=== PATIENT | male | born 1960 | race Caucasian/White ===

== ENCOUNTER 2016-04-27 14:45 | Inpatient (IN) ==
[2016-04-27] MEDS ORDERED: NS 1,000 ML IV ONE ×2 (16:39→21:34)
[2016-04-27 16:50] LABS: URINE MICRO REVIEW NEEDED? NO; URINE SOURCE CLEAN CATCH
[2016-04-27 16:55] LABS: BILIRUBIN URINE NEGATIVE (NEGATIVE); BLOOD URINE NEGATIVE (NEGATIVE); COLOR STRAW; GLUCOSE URINE >1000 mg/dL (NEGATIVE); LEUKOCYTES URINE NEGATIVE (NEGATIVE); NITRITE URINE NEGATIVE (NEGATIVE); PROTEIN URINE NEGATIVE (NEGATIVE); SP GRAVITY URINE 1.032; TURBIDITY URINE CLEAR (CLEAR); UROBILINOGEN URINE NORMAL (NORMAL)
--- NOTE | 2016-04-27 17:04 | PROVIDER DOCUMENTATION ---
HPI-General Adult - General Source: patient - History of Present Illness -Gen Adult Nature of Presenting Problems: Reports to er with cc of hyperglycemia with nausea and vomiting x 3 days with shortness of breath that has been increasing past 3 days nothing making it better or worse.Pt also reports hypotension past few days reports BP will drop from sitting to standing and has fell twice today. Pt reports previous hx of this and is taking medications for it. Pt reports that he is taking Insulin on a sliding scale. Location of Pain/Injury: reports: generalized Quality of Pain: reports: none Severity: reports: moderate Onset/Duration: reports: 3 days ago Timing: reports: still present Similar Symptoms Previously?: Yes Recently seen or treated by another doctor?: No <Markus Cabrera - Last Filed: 04/27/16 17:53> <Anya Chahal - Last Filed: 04/27/16 21:43> - General Chief Complaint: High Blood Sugar Stated Complaint: HIGH BLOOD SUGAR Time Seen by Provider: 04/27/16 16:39 Allergies/Adverse Reactions: Patient Allergies Allergy/AdvReac Type Severity Reaction Status Date / Time No Known Allergies Allergy Verified 04/27/16 15:34 Home Medications: Insulin Novolog 70/30 [Novolog Mix 70/30] unit SUBQ BID 04/27/16 Review of Systems - Adult - REVIEW OF SYSTEMS - ADULT Constitutional: denies: chills, fever, fatique Eyes: reports: no symptoms reported Ears, Nose, Mouth & Throat: reports: no symptoms reported Cardiovascular: denies: chest pain, irregular heart rate, orthopnea, syncope Respiratory: reports: shortness of breath. denies: cough, pleurisy, wheezing Gastrointestinal: reports: nausea, vomiting. denies: abdominal pain, hematemesis, diarrhea, difficulty swallowing, frequent heartburn Genitourinary: reports: no symptoms reported Musculoskeletal: reports: no symptoms reported Integumentary: reports: no symptoms reported Neurological: reports: no symptoms reported Psychiatric: reports: no symptoms reported Endocrine: reports: no symptoms reported Hematologic/Lymphatic: reports: no symptoms reported Allergic/Immunologic: reports: no symptoms reported All Other Systems: Reviewed and Negative <Markus Cabrera - Last Filed: 04/27/16 17:53> Past History - Adult - PAST MEDICAL HISTORY-ADULT Review of Records: reports: Nursing Assessment Review, Medications Reviewed Major Childhood Illnesses: reports: denies history Cardiovascular: reports: other (hypotension) Neurological: reports: Seizures/Epilepsy Psychiatric: reports: depression Endocrine/Immune: reports: Diabetes - PRIOR SURGERIES/PROCEDURES Surgical/Procedure History: reports: hernia repair, other (neuropathy; dysautonomia) - IMMUNIZATION STATUS Childhood Immunizations: See Nurse Assessment Flu Vaccine: See Nurse Assessment - FAMILY HISTORY Family History: diabetes <Markus Cabrera - Last Filed: 04/27/16 17:53> Physical Exam-General - PHYSICAL EXAM-ADULT Initial Vital Signs Reviewed: Yes - CONSTITUTIONAL General Appearance: appears well, alert, no apparent distress - EYES Eyes: PERRL/EOMI, pink conjunctivae - HEAD, EARS, NOSE, MOUTH & THROAT HENMT: normocephalic/atraumatic, moist mucous membranes, normal ENT inspection - NECK Neck: non-tender, full range of motion, supple, normal inspection - RESPIRATORY Respiratory: chest non-tender, lungs clear, normal breath sounds, no pleuratic chest pain, no accessory muscle use, respiratory distress - CARDIOVASCULAR Cardiovascular: normal peripheral pulses, regular rate, rhythm, no edema, no gallop, no JVD, no murmur - GASTROINTESTINAL (ABDOMEN) Abdominal Exam: normal bowel sounds, non tender, soft - LYMPHATIC Lymphatic: no adenopathy - MUSCULOSKELETAL Back Exam: normal inspection, no CVA tenderness, no vertebral tenderness Extremity: normal range of motion, non-tender, normal gait - SKIN Integumentary: normal color, normal turgor, warm/dry - NEUROLOGIC Neurologic: grossly normal, no motor/sensory deficits - PSYCHIATRIC Psych/Mental Status: normal mood/affect, normal thought content, normal thought process, oriented x 3 <CabreraMarkus - Last Filed: 04/27/16 17:53> Progress - PLAN OF CARE/RESULTS Progress/Plan/Lab Results: Orders Category Date Time Status ABG [RESP] Routine Lab 04/27/16 16:39 Ordered ACETONE SERUM [CHEM] Stat Lab 04/27/16 16:42 Received CBC WITH ELECTRONIC DIFF [HEME] Stat Lab 04/27/16 16:42 Results COMPREHENSIVE METABOLIC PANEL [CHEM] Stat Lab 04/27/16 16:42 Received UA Reflex [URINALYSIS W/POSS RFLX CULT] [URINALYSIS] Lab 04/27/16 16:37 Results Stat 0.9% Sodium Chloride Inj [Ns] 1,000 ml Med 04/27/16 16:39 Active IV 999 mls/hr Vital Signs - 24 hr 04/27/16 15:24 Temperature 98.1 F Pulse Rate 79 Respiratory 16 Rate Blood Pressure 150/93 O2 Sat by Pulse 89 L Oximetry Laboratory Tests 04/27/16 04/27/16 04/27/16 15:30 16:37 16:42 WBC 4.25 L RBC 4.75 Hgb 15.2 Hct 39.9 L MCV 84.0 MCH 32.0 H MCHC 38.1 H RDW Std Deviation 12.6 Plt Count 93 L MPV 9.7 Immature Gran % (Auto) 0.0 Neut % (Auto) 50.0 Lymph % (Auto) 44.7 [place]edar % (Auto) 4.9 Eos % (Auto) 0.2 Baso % (Auto) 0.2 Immature Gran # (Auto) 0.00 Neut # (Auto) 2.12 Lymph # (Auto) 1.90 [place] # (Auto) 0.21 Eos # (Auto) 0.01 Baso # (Auto) 0.01 Specimen Type Sample Site pH pCO2 pO2 HCO3 Base Excess Oxyhemoglobin ABG O2 Sat (Calculated) ABG O2 Saturation ABG Carboxyhemoglobin ABG Methemoglobin Alec Test A-a O2 Difference Total Hemoglobin Lactate Liter Flow Blood Gas Modality FiO2 % Sodium Potassium Chloride Carbon Dioxide Anion Gap BUN Creatinine Estimated GFR/1.73 m2 BUN/Creatinine Ratio Glucose POC Glucose 462 H Calculated Osmolality Calcium Total Bilirubin AST ALT Alkaline Phosphatase Total Protein Albumin Globulin Albumin/Globulin Ratio Urine Source CLEAN CATCH Urine Color STRAW Urine Turbidity CLEAR Urine pH 7.0 Ur Specific [place] 1.032 Urine Protein NEGATIVE Ur Glucose (Stick) >1000 A Ur Ketones (Stick) NEGATIVE Urine Blood NEGATIVE Urine Nitrite NEGATIVE Urine Bilirubin NEGATIVE Urobilinogen Dipstick NORMAL Urine Leukocytes NEGATIVE Urine WBC (Auto) <10 Urine RBC (Auto) <10 U Epithel Cells (Auto) <10 Urine Bacteria (Auto) NEGATIVE Acetone Level 04/27/16 04/27/16 16:42 17:00 WBC RBC Hgb Hct MCV MCH MCHC RDW Std Deviation Plt Count MPV Immature Gran % (Auto) Neut % (Auto) Lymph % (Auto) [place] % (Auto) Eos % (Auto) Baso % (Auto) Immature Gran # (Auto) Neut # (Auto) Lymph # (Auto) [place] # (Auto) Eos # (Auto) Baso # (Auto) Specimen Type ARTERIAL Sample Site R RADIAL pH 7.42 pCO2 45 pO2 101 H HCO3 28.0 H Base Excess 4.0 H Oxyhemoglobin 95.7 ABG O2 Sat (Calculated) 19.5 ABG O2 Saturation 100.2 H ABG Carboxyhemoglobin 3.10 H ABG Methemoglobin 1.4 Aelc Test YES A-a O2 Difference -8.0 Total Hemoglobin 14.4 Lactate 7.20 H* Liter Flow 2.0 Blood Gas Modality CANNULA FiO2 % 21.0 Sodium 136 Potassium 3.6 Chloride 89 L Carbon Dioxide 26 Anion Gap 21 BUN 4 L Creatinine 0.7 Estimated GFR/1.73 m2 > 60 BUN/Creatinine Ratio 6 Glucose 490 H* POC Glucose Calculated Osmolality 291 Calcium 8.1 L Total Bilirubin 1.18 H AST 20 ALT 21 Alkaline Phosphatase 91 Total Protein 6.4 Albumin 3.9 Globulin 2.5 Albumin/Globulin Ratio 1.6 Urine Source Urine Color Urine Turbidity Urine pH Ur Specific [place] Urine Protein Ur Glucose (Stick) Ur Ketones (Stick) Urine Blood Urine Nitrite Urine Bilirubin Urobilinogen Dipstick Urine Leukocytes Urine WBC (Auto) Urine RBC (Auto) U Epithel Cells (Auto) Urine Bacteria (Auto) Acetone Level NEGATIVE - CHANGE OF SHIFT REPORT (ED Provider) Report Given and Care Transferred to:: Time of Transfer: 18:00 <Markus Cabrera - Last Filed: 04/27/16 17:53> - PLAN OF CARE/RESULTS Progress/Plan/Lab Results: plan of care: imaging, labs, medications, fluids Orders Category Date Time Status Finger Stick Blood Sugar (ED) DIRECTED Care 04/27/16 18:52 Active CHEST-2 VIEWS [RAD] Stat Exams 04/27/16 17:[address] ABD/PELVIS W/ IV CONT ONLY [CT] Stat Exams 04/27/16 19:06 Taken ABG [RESP] Routine Lab 04/27/16 17:00 Completed ACETONE SERUM [CHEM] Stat Lab 04/27/16 16:42 Completed CBC WITH ELECTRONIC DIFF [HEME] Stat Lab 04/27/16 16:42 Completed COMPREHENSIVE METABOLIC PANEL [CHEM] Stat Lab 04/27/16 16:42 Completed D-DIMER [CHEM] Stat Lab 04/27/16 16:42 Completed LACTATE, PLASMA [CHEM] Stat Lab 04/27/16 20:55 Received LIPASE [CHEM] Stat Lab 04/27/16 16:42 Completed TROPONIN T Stat Lab 04/27/16 16:42 Completed UA Reflex [URINALYSIS W/POSS RFLX CULT] [URINALYSIS] Lab 04/27/16 16:37 Completed Stat 0.9% Sodium Chloride Inj [Ns] 1,000 ml Med 04/27/16 16:39 Discontinued IV 999 mls/hr Albuterol 2.5MG/Ipratrop 0.5MG [Duoneb (A & A)] Med 04/27/16 17:38 Discontinued 3 ml INH NOW ONE Hydromorphone [Dilaudid] Med 04/27/16 21:07 Discontinued 1 mg IV NOW ONE Insulin Human Regular [Humulin R] Med 04/27/16 17:30 Discontinued 15 unit IV NOW ONE Lorazepam [Ativan] Med 04/27/16 19:19 Discontinued 1 mg IV NOW ONE Morphine Med 04/27/16 19:07 Discontinued 4 mg IV NOW ONE Ondansetron [Zofran] Med 04/27/16 19:06 Discontinued 4 mg IV NOW ONE Aerosol Treatments Routine Oth 04/27/16 17:38 Completed Aerosol Treatments Stat Oth 04/27/16 17:38 Completed Laboratory Tests 04/27/16 04/27/16 04/27/16 15:30 16:37 16:42 WBC 4.25 L RBC 4.75 Hgb 15.2 Hct 39.9 L MCV 84.0 MCH 32.0 H MCHC 38.1 H RDW Std Deviation 12.6 Plt Count 93 L MPV 9.7 Immature Gran % (Auto) 0.0 Neut % (Auto) 50.0 Lymph % (Auto) 44.7 [place] % (Auto) 4.9 Eos % (Auto) 0.2 Baso % (Auto) 0.2 Immature Gran # (Auto) 0.00 Neut # (Auto) 2.12 Lymph # (Auto) 1.90 [place] # (Auto) 0.21 Eos # (Auto) 0.01 Baso # (Auto) 0.01 Segmented Neutrophils Cancelled Band Neutrophils Cancelled Lymphocytes Cancelled Monocytes Cancelled Eosinophils Cancelled Basophils Cancelled Metamyelocytes Cancelled Myelocytes Cancelled Promyelocytes Cancelled Nucleated RBCs Cancelled Atypical Lymphocytes Cancelled Blast Cells Cancelled Hypochromia Cancelled Vacuolization Cancelled Toxic Granulation Cancelled Dohle Bodies Cancelled Large Platelets Cancelled Polychromasia Cancelled Poikilocytosis Cancelled Basophilic Stippling Cancelled Anisocytosis Cancelled Microcytosis Cancelled Macrocytosis Cancelled Spherocytes Cancelled Sickle Cells Cancelled Target Cells Cancelled Ovalocytes Cancelled Stomatocytes Cancelled [place] Bodies Cancelled Oto Cells Cancelled Unidentified Cells Cancelled Schistocytes Cancelled D-Dimer Specimen Type Sample Site pH pCO2 pO2 HCO3 Base Excess Oxyhemoglobin ABG O2 Sat (Calculated) ABG O2 Saturation ABG Carboxyhemoglobin ABG Methemoglobin Alec Test A-a O2 Difference Total Hemoglobin Lactate Liter Flow Blood Gas Modality FiO2 % Sodium Potassium Chloride Carbon Dioxide Anion Gap BUN Creatinine Estimated GFR/1.73 m2 BUN/Creatinine Ratio Glucose POC Glucose 462 H Calculated Osmolality Calcium Total Bilirubin AST ALT Alkaline Phosphatase Troponin T Total Protein Albumin Globulin Albumin/Globulin Ratio Lipase Urine Source CLEAN CATCH Urine Color STRAW Urine Turbidity CLEAR Urine pH 7.0 Ur Specific [place] 1.032 Urine Protein NEGATIVE Ur Glucose (Stick) >1000 A Ur Ketones (Stick) NEGATIVE Urine Blood NEGATIVE Urine Nitrite NEGATIVE Urine Bilirubin NEGATIVE Urobilinogen Dipstick NORMAL Urine Leukocytes NEGATIVE Urine WBC (Auto) <10 Urine RBC (Auto) <10 U Epithel Cells (Auto) <10 Urine Bacteria (Auto) NEGATIVE Acetone Level 04/27/16 04/27/16 04/27/16 16:42 16:42 16:42 WBC RBC Hgb Hct MCV MCH MCHC RDW Std Deviation Plt Count MPV Immature Gran % (Auto) Neut % (Auto) Lymph % (Auto) [place] % (Auto) Eos % (Auto) Baso % (Auto) Immature Gran # (Auto) Neut # (Auto) Lymph # (Auto) [place] # (Auto) Eos # (Auto) Baso # (Auto) Segmented Neutrophils Band Neutrophils Lymphocytes Monocytes Eosinophils Basophils Metamyelocytes Myelocytes Promyelocytes Nucleated RBCs Atypical Lymphocytes Blast Cells Hypochromia Vacuolization Toxic Granulation Dohle Bodies Large Platelets Polychromasia Poikilocytosis Basophilic Stippling Anisocytosis Microcytosis Macrocytosis Spherocytes Sickle Cells Target Cells Ovalocytes Stomatocytes [place] Bodies Oto Cells Unidentified Cells Schistocytes D-Dimer 0.17 Specimen Type Sample Site pH pCO2 pO2 HCO3 Base Excess Oxyhemoglobin ABG O2 Sat (Calculated) ABG O2 Saturation ABG Carboxyhemoglobin ABG Methemoglobin Alec Test A-a O2 Difference Total Hemoglobin Lactate Liter Flow Blood Gas Modality FiO2 % Sodium 136 Potassium 3.6 Chloride 89 L Carbon Dioxide 26 Anion Gap 21 BUN 4 L Creatinine 0.7 Estimated GFR/1.73 m2 > 60 BUN/Creatinine Ratio 6 Glucose 490 H* POC Glucose Calculated Osmolality 291 Calcium 8.1 L Total Bilirubin 1.18 H AST 20 ALT 21 Alkaline Phosphatase 91 Troponin T < 0.010 Total Protein 6.4 Albumin 3.9 Globulin 2.5 Albumin/Globulin Ratio 1.6 Lipase Urine Source Urine Color Urine Turbidity Urine pH Ur Specific [place] Urine Protein Ur Glucose (Stick) Ur Ketones (Stick) Urine Blood Urine Nitrite Urine Bilirubin Urobilinogen Dipstick Urine Leukocytes Urine WBC (Auto) Urine RBC (Auto) U Epithel Cells (Auto) Urine Bacteria (Auto) Acetone Level NEGATIVE 04/27/16 04/27/16 16:42 17:00 WBC RBC Hgb Hct MCV MCH MCHC RDW Std Deviation Plt Count MPV Immature Gran % (Auto) Neut % (Auto) Lymph % (Auto) [place] % (Auto) Eos % (Auto) Baso % (Auto) Immature Gran # (Auto) Neut # (Auto) Lymph # (Auto) [place] # (Auto) Eos # (Auto) Baso # (Auto) Segmented Neutrophils Band Neutrophils Lymphocytes Monocytes Eosinophils Basophils Metamyelocytes Myelocytes Promyelocytes Nucleated RBCs Atypical Lymphocytes Blast Cells Hypochromia Vacuolization Toxic Granulation Dohle Bodies Large Platelets Polychromasia Poikilocytosis Basophilic Stippling Anisocytosis Microcytosis Macrocytosis Spherocytes Sickle Cells Target Cells Ovalocytes Stomatocytes [place] Bodies Oto Cells Unidentified Cells Schistocytes D-Dimer Specimen Type ARTERIAL Sample Site R RADIAL pH 7.42 pCO2 45 pO2 101 H HCO3 28.0 H Base Excess 4.0 H Oxyhemoglobin 95.7 ABG O2 Sat (Calculated) 19.5 ABG O2 Saturation 100.2 H ABG Carboxyhemoglobin 3.10 H ABG Methemoglobin 1.4 Alec Test YES A-a O2 Difference -8.0 Total Hemoglobin 14.4 Lactate 7.20 H* Liter Flow 2.0 Blood Gas Modality CANNULA FiO2 % 21.0 Sodium Potassium Chloride Carbon Dioxide Anion Gap BUN Creatinine Estimated GFR/1.73 m2 BUN/Creatinine Ratio Glucose POC Glucose Calculated Osmolality Calcium Total Bilirubin AST ALT Alkaline Phosphatase Troponin T Total Protein Albumin Globulin Albumin/Globulin Ratio Lipase 6 L Urine Source Urine Color Urine Turbidity Urine pH Ur Specific [place] Urine Protein Ur Glucose (Stick) Ur Ketones (Stick) Urine Blood Urine Nitrite Urine Bilirubin Urobilinogen Dipstick Urine Leukocytes Urine WBC (Auto) Urine RBC (Auto) U Epithel Cells (Auto) Urine Bacteria (Auto) Acetone Level Vital Signs - 24 hr 04/27/16 04/27/16 04/27/16 15:24 17:45 21:04 Temperature 98.1 F 98.5 F Pulse Rate 79 79 87 Respiratory 16 18 16 Rate Blood Pressure 150/93 157/92 141/78 O2 Sat by Pulse 89 L 97 93 L Oximetry Pt/family given results. Pt will be admitted to the hospitalist group. PT/ Family in agreement with plan of care. - REASSESSMENT Reassessment #1 Time Reassessed: 19:00 (acute ABD, moderate generalized tenderness, postive bilateral heel slap, positive rebound tenderness generalized. CT scan will be ordered. ) - CT/MRI 1 CT Study: Abdomen, Pelvis Impression: Abnormal (Evidence of chronic pancreatitis. Marked GB, common bile duct, and pancreatice duct dilation suggesting distal obstruction. Multiple calcifications at pancreatic head are probably due to chronic pancreatitis. I suppose one of the calcifications may actually be inside or obstructing the bile duct. An occult obstructing mass should also be considered. ERCP recommended. 2 cm nonspecific low dense lesion at the hepatic dome, possible a complex cyst. Fatty liver. Otherwise NAP.: Dr. Acosta) - CONSULTS/PCP/HOSPITALIST Notification #1 *Consult/PCP/Hospitalist*: Dr. Garcia Time Discussed: 20:49 Consult Disposition: Will see in ED, Admit #2 Consult: Dr. Barnhart Time Discussed: 20:53 Consult Disposition: Admit (will consult) #3 Consult: Dr. Barnhart Time Discussed: 21:35 Reason/Comments: advising of repeat plasma lactate Consult Disposition: Will see in ED (will see in 15 minutes, currently in surgery) <Anya Chahal - Last Filed: 04/27/16 21:43> Departure <Markus Cabrera - Last Filed: 04/27/16 17:53> - Departure Time of Disposition Order: 20:51 Certified Medical Emergency: Emergent <Anya Chahal - Last Filed: 04/27/16 21:43> - Departure DIAGNOSIS: Cholecystitis Disposition: ADMITTED INPATIENT 09 Condition: Stable Referrals: Alin Luu MD [Primary Care Provider] - Attestation - Scribe Verification/Attestation Scribe:: Markus Cabrera Acting as Scribe for:: Terri Anders Jr Scribe documention review:: This chart was documented by a scribe and accurately reflects the service the provider performed and the decisions made by the provider. <Markus Cabrera - Last Filed: 04/27/16 17:53> - Scribe Verification/Attestation #2 Shift Change Time: 18:00 Scribe Name: Anya Chahal Acting as Scribe for:: Cipriano Sebastian <Anya Chahal - Last Filed: 04/27/16 21:43> Physician Attestation - Physician Attestation I, the provider, attest to the following statement:: Cipriano Sebastian Physician documentation Attestation:: This documentation recorded by the scribe accurately reflects the service I personally performed and the decisions made by me. <Anya Chahal - Last Filed: 04/27/16 21:43>
[2016-04-27 17:08] LABS: ACETONE SERUM NEGATIVE (NEGATIVE)
[2016-04-27 17:10] LABS: UR EPITHELIAL CELLS <10 /HPF (<10); URINE BACTERIA NEGATIVE /HPF; URINE CULTURE NEEDED? NO; URINE RBC <10 /HPF (<10); URINE WBC <10 /HPF (<10)
[2016-04-27 17:16] LABS: ALLEN TEST YES; BLOOD TYPE ARTERIAL; DRAW SITE R RADIAL; METHB 1.4 % (0.0-1.5); O2(CT) 19.5 mL/dL (15.0-23.0); PCO2(98.6) 45 mmHg (35-45); PO2(98.6) 101 mmHg (60-100); SAMPLE BLOOD; SAO2 100.2 % (95.0-100.0); THB 14.4 g/dL (11.5-17.4); pH(98.6) 7.42 (7.35-7.45)
[2016-04-27 17:18] LABS: MODALITY CANNULA
[2016-04-27 17:30] LABS: AGAP 21; ALBUMIN 3.9 g/dL (3.5-5.0); ALKALINE PHOSPHATASE 91 U/L (32-122); BUN 4 mg/dL (8-22); CALCIUM 8.1 mg/dL (8.8-10.2); CHLORIDE 89 mmol/L (98-107); COSMO 291; GOT 20 U/L (10-34); GPT 21 U/L (10-44); POTASSIUM 3.6 mmol/L (3.5-5.1); SODIUM 136 mmol/L (136-145); TCO2 26 mmol/L (25-35); TOTAL BILIRUBIN 1.18 mg/dL (0.20-1.00); TOTAL PROTEIN 6.4 g/dL (6.3-8.3)
[2016-04-27] MEDS ORDERED: HUMULIN R IV ONE (17:30)
[2016-04-27] MEDS ORDERED: DUONEB (A & A) INH ONE (17:38)
[2016-04-27 17:44] LABS: BASO% 0.2 % (0.0-0.8); EOS# 0.01 X1000 (0.0-0.7); EOS% 0.2 % (0.0-10.0); HEMATOCRIT 39.9 % (42.0-52.0); HEMOGLOBIN 15.2 g/dL (14.0-18.0); LYMPH% 44.7 % (20.5-51.1); MANUAL DIFF NEEDED? YES; MCHC 38.1 g/dL (33-37); MONO# 0.21 X1000 (0.11-0.59); MONO% 4.9 % (1.7-9.3); MPV 9.7 FL (7.4-10.4); PLT 93 X1000 (130-400); RBC 4.75 XMIL (4.7-6.1)
[2016-04-27] MEDS ORDERED: ZOFRAN IV ONE (19:06)
[2016-04-27] MEDS ORDERED: MORPHINE IV ONE (19:07)
[2016-04-27] MEDS ORDERED: ATIVAN IV ONE (19:19)
[2016-04-27] MEDS ORDERED: DILAUDID IV ONE (21:07)
--- NOTE | 2016-04-27 22:47 | HISTORY AND PHYSICAL ---
CHIEF COMPLAINT: Abdominal pain, nausea, vomiting x1 week. HISTORY OF PRESENTING ILLNESS: A 56-year-old male with a history of diabetes mellitus type 2 and history of orthostatic hypotension had presented to emergency department with a 1-week history of having nausea, vomiting and diffuse abdominal pain. The patient states that he was feeling worse and subsequently had come to emergency department. In the ER, he was evaluated. He had a CAT scan done, which did show enlarged gallbladder and bile ducts, symptoms consistent with suspected choledocholithiasis. Subsequently he will need hospitalization for further management. At the time of my examination, he denied any headache, fever, chills, chest pain, shortness of breath, hemoptysis or weight changes but complained of abdominal pain. Not feeling well. PAST MEDICAL HISTORY: Diabetes mellitus type 2 and orthostatic hypotension. PAST SURGICAL HISTORY: None. ALLERGIES: No known drug allergies. CURRENT MEDICATIONS: Listed in the MAR. SOCIAL HISTORY: No history of smoking, alcohol or illicit drug use. FAMILY HISTORY: No history of coronary disease. REVIEW OF SYSTEMS: Twelve point review of systems is as in HPI. Other systems negative. PHYSICAL EXAMINATION: GENERAL: Cooperative, friendly male. He is resting comfortably now. VITAL SIGNS: Temperature 98.1 degrees, pulse 89, respirations 16, blood pressure 150/93, he is saturating 98%. HEENT: Atraumatic, normocephalic. Extraocular movements intact. PERRLA. NECK: No masses. CHEST: Clear to auscultation. CARDIOVASCULAR: Regular rate and rhythm. ABDOMEN: Soft. Diffuse tenderness. EXTREMITIES: No edema. NEUROLOGIC: He is awake, alert, oriented x3. : No bladder distention. SKIN: Warm. LABORATORIES AND STUDIES: WBC 4.25. Hemoglobin 15.2. Hematocrit 39.9. Platelets 93,000. Sodium 136, potassium 3.6, chloride 89, CO2 is 26, BUN is 4, creatinine 0.7, glucose is 490, lactic acid level is 7.4. Total bilirubin is 1.18. Urine shows greater than 1000 glucose. ASSESSMENT: This is a 56-year-old male with a history of diabetes mellitus type 2 and chronic orthostatic hypotension, had presented to the emergency department with 1-week history of having abdominal pain, nausea, vomiting. He had imaging done, which showed a dilated bile duct with suspicion for cholelithiasis. The patient will need hospitalization for further management. 1. Abdominal pain with Nausea and Vomiting 2. Suspected choledocholithiasis. 3. Diabetes mellitus type 2 with hyperglycemia. 4. Orthostatic hypotension. 5. Lactic Acidiosis probably secondary to #4, hypoperfusion/ volume depletion PLAN: 1. We will admit patient to medical floor. 2. We will keep patient nothing per oral, give him adequate pain control and antiemetics. 3. We will consult Gastroenterology and Surgery. 4. We will continue patient on sliding scale insulin regimen. 5. I will give patient adequate fluids. 6. We will monitor his lactate level again due to the fact it was elevated. and continue with IV fluids 7. Put patient on deep venous thrombosis prophylaxis with Sequential Compression Devices. 8. We will continue to follow and reassess. [facility]
[2016-04-27] MEDS ORDERED: KEFZOL 1 GM/D5W 50 ML IV ONE (22:58)
[2016-04-27] MEDS ORDERED: CLAVE SECONDARY SET 11953 ONE (23:44)
[2016-04-27] MEDS ORDERED: KEFZOL 1 GM/D5W 50 ML ONE (23:44)
[2016-04-27] MEDS ORDERED: LR 1,000 ML ONE (23:55)
[2016-04-27] MEDS ORDERED: SENSORCAINE 0.25%/EPI 1:200,000 ONE (23:55)
[2016-04-28] MEDS ORDERED: DIPRIVAN 1% ONE (01:12)
[2016-04-28] MEDS ORDERED: FENTANYL ONE (01:12)
[2016-04-28] MEDS ORDERED: NS 1,000 ML ONE (01:17)
--- NOTE | 2016-04-28 01:19 | CONSULTATION ---
DATE OF CONSULTATION: 04/27/2016 REQUESTING PHYSICIAN: Dr. Elizabeth. SURGEON CONSULTED.: Ke Barnhart. REASON FOR CONSULTATION: Severe abdominal pain, abnormal abdominal exam with elevated serum lactate.. HISTORY OF PRESENT ILLNESS: A 56-year-old male with a 1-week history of intermittent nausea, vomiting, weakness, hypotension and mid to lower abdominal pain. He initially revealed to me that he presented to the emergency room due to the nausea and vomiting, weakness and hypotension. He took his blood pressure today and his blood pressure was systolic in the 70s, diastolic in the 40s. This is a chronic problem for him secondary to an autonomic neuropathy. He is on a medication for it. He also admits to me upon further questioning, that he has had fairly significant mid to lower abdominal pain. He attributed this due to the multiple episodes of vomiting. It also hurts sometimes after eating. He denies diarrhea, constipation, rectal bleeding or fever. PAST MEDICAL HISTORY: 1. Diabetic autonomic neuropathy or dysautonomia with postural hypotension. 2. Insulin-dependent diabetes mellitus. 3. 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 4. Alcohol abuse. 5. History of seizures. PAST SURGICAL HISTORY: Left inguinal hernia repair. FAMILY HISTORY: His mother had lung cancer. His father had Alzheimer's disease and his brother had colon cancer. HOME MEDICATIONS: Florinef, Neurontin, midodrine, NovoLog 70/30. SOCIAL HISTORY: He has a history of alcohol abuse. He says he quit a while back, but drank again this past week. He is disabled. He denies tobacco use. REVIEW OF SYSTEMS: Ten systems reviewed and negative except as noted above. PHYSICAL EXAM: vital signs: Although his blood pressure was reported to be 70/40s at home, on presentation his blood pressure was normal or slightly elevated, currently 127/82, respiratory rate 22, pulse 99, temperature 98.1. General: He is alert oriented x4. No acute distress. He looks his stated age. HEENT: Normocephalic, atraumatic. Extraocular muscles intact. Pupils equal, round, reactive to light. Sclerae anicteric. Neck: Supple. No thyromegaly. Lymphs: No cervical, supraclavicular, or periumbilical lymph nodes appreciated. Cardiovascular: Regular rate and rhythm. Respiratory: Bilateral equal breath sounds. No work of breathing. GI: He is soft, nondistended with some bowel sounds. No mass or organomegaly appreciated. He is moderately tender across his mid abdomen with some peritoneal irritation, especially with a heel tap. Neuro: Alert oriented x4. No focal neurologic deficits in the extremities. Musculoskeletal: Moves all extremities equally and well. Skin: Warm and dry. No rash. LABORATORY: White blood cell count 4, hemoglobin 15, platelet count 93,000. Metabolic profile reviewed and notable for glucose of 490. Lipase is normal at 6. Liver function tests unremarkable. Slightly elevated bilirubin of 1.2. He also had some decreased potassium at 3.6, and chloride at 89. Serum acetone levels negative. Serum lactate level however is 7.4. ABGs shows pH 7.42, PCO2 of 45, PaO2 101, and bicarb 28, and lactate is 7.2. IMAGING: He had a CT of abdomen and pelvis, which showed a dilated common bile duct and gallbladder with stones in the pancreas. Upon my chart review, he has a history of this dating back to 2014. ASSESSMENT AND PLAN: A 56-year-old male with multiple medical problems, presenting with a somewhat confusing picture of abdominal pain, nausea, vomiting, lactic acidosis with an elevated anion gap, a tender abdomen, hyperglycemia, reported hypotension, as well as, a history of an abnormal gallbladder and common bile duct. Given this presentation, I think the differential diagnosis would include hyperglycemia producing the abdominal complaints, global hypoperfusion secondary to either volume loss from nausea and vomiting or dysautonomia and postural hypotension. Also cannot rule out acute intestinal or subacute intestinal ischemia. Given this, I feel it is safest to take him to surgery for diagnostic laparoscopy tonight and rule out an acute intestinal ischemic event. I discussed the risks and benefits with him including bleeding, infection, injury to his abdominal organs, such as the intestines, the possible need for bowel resection, or revascularization, incisional hernia, postoperative pneumonia and other imponderables. He understands and agrees to proceed.
[2016-04-28] MEDS ORDERED: NORCO-5 PO PRN (02:04)
[2016-04-28] MEDS: NS 1,000 ML IV SCH ×3 (02:05→22:28)
[2016-04-28] MEDS: DILAUDID IV PRN ×6 (03:12→22:27)
--- NOTE | 2016-04-28 04:02 | OPERATIVE NOTE ---
PROCEDURE DATE: 04/28/2016 PREOPERATIVE DIAGNOSES: 1. Abdominal pain. 2. Elevated lactate. 3. Hyperglycemia 4. Dysautonomia and hypotension. POSTOPERATIVE DIAGNOSES: 1. Abdominal pain. 2. Elevated lactate. 3. Hyperglycemia 4. Dysautonomia and hypotension. PROCEDURE: Diagnostic laparoscopy. SURGEON: Ke Barnhart MD ANESTHESIA: General. ESTIMATED BLOOD LOSS: 10 mL. COMPLICATIONS: None apparent. SPECIMENS: None. FINDINGS: The small bowel had some mild peritoneal irritation and friability with minor spontaneous bloody oozing along multiple areas; however, there was very good peristalsis, good color of the bowel and pulsatile blood flow at the terminal branches of the mesentery throughout the small bowel. There were no signs of any ischemia of small bowel, colon, rectum or stomach. The spleen and liver were unremarkable. The gallbladder was distended but not acutely inflamed. The appendix was normal. There were no signs of any obstruction. TECHNIQUE: He was brought to the operating room and placed supine on the table. General anesthesia was induced. He was prepped and draped in the usual sterile fashion. Then, 0.25% Marcaine with epinephrine was used to anesthetize our skin incisions. An 11 mm incision was made above the umbilicus. The fascia was exposed and incised sharply. Entry into the peritoneal cavity was obtained under direct vision with the Optiview device. Pneumoperitoneum was established. The camera was inserted. There was no evidence of injury to underlying structures. Two 5 mm incision and ports were placed under direct vision in the right upper quadrant and left lower quadrant. I placed the patient in Trendelenburg and reverse Trendelenburg in alternating fashion. I worked from the ligament of Treitz down to the terminal ileum and back with the above findings. I could find no signs of intra-abdominal catastrophe or ischemic event. There was some hemoperitoneum, which I believe is due to general friability of the visceral peritoneum diffusely. The etiology is unclear. I then desufflated the abdomen and removed the ports and closed the umbilical fascia with a [id number] 0 Vicryl. The skin was closed with running 4-0 subcuticular Monocryl and Steri-Strips. There were no apparent complications.
[2016-04-28] MEDS: ZOFRAN IV PRN ×2 (04:48→08:23)
[2016-04-28 05:44] LABS: BASO% 0.2 % (0.0-0.8); EOS# 0.02 X1000 (0.0-0.7); EOS% 0.4 % (0.0-10.0); HEMATOCRIT 36.5 % (42.0-52.0); HEMOGLOBIN 13.6 g/dL (14.0-18.0); LYMPH# 1.52 X1000 (1.2-3.4); LYMPH% 26.7 % (20.5-51.1); MANUAL DIFF NEEDED? NO; MCH 31.9 PG (27-31); MCHC 37.3 g/dL (33-37); MCV 85.7 FL (81-99); MONO% 5.3 % (1.7-9.3); MPV 9.9 FL (7.4-10.4); NEUT% 67.4 % (42.2-75.2); PLT 76 X1000 (130-400); RBC 4.26 XMIL (4.7-6.1)
[2016-04-28] MEDS: HUMULIN R SUBQ SCH ×4 (06:05→22:29)
[2016-04-28 06:11] LABS: AGAP 18; ALBUMIN 3.8 g/dL (3.5-5.0); ALKALINE PHOSPHATASE 83 U/L (32-122); BUN 4 mg/dL (8-22); CALCIUM 7.4 mg/dL (8.8-10.2); CHLORIDE 96 mmol/L (98-107); COSMO 283; GOT 21 U/L (10-34); GPT 21 U/L (10-44); POTASSIUM 3.5 mmol/L (3.5-5.1); SODIUM 140 mmol/L (136-145); TCO2 26 mmol/L (25-35); TOTAL BILIRUBIN 1.22 mg/dL (0.20-1.00)
--- NOTE | 2016-04-28 07:48 | EKG Report ---
Test Performed on : 04/27/2016 4:43:56 PM Test Reason : Done in ED/No order in [employer] Blood Pressure : / mmHG Vent. Rate : 079 BPM Atrial Rate : 079 BPM P-R Int : 156 ms QRS Dur : 078 ms QT Int : 398 ms P-R-T Axes : 056 058 043 degrees QTc Int : 456 ms Normal sinus rhythm. Normal ECG When compared with ECG of 15-JAN-2015 01:53, Nonspecific T wave abnormality, improved in Inferior leads Unconfirmed Result
--- NOTE | 2016-04-28 07:52 | Diag Imaging Result Document ---
PROCEDURE NAME: CT ABD/PELVIS W/ IV CONT ONLY - 04/27/2016 CT ABDOMEN PELVIS WITH INTRAVENOUS CONTRAST, 04/27/2016: COMPARISON: Right upper quadrant ultrasound 01/15/2015. FINDINGS: Stable severe pancreatic atrophy with abnormal calcifications throughout the pancreas. There is also a calcified stone at the main pancreatic duct in the pancreatic head. The common bile duct remains borderline. Stable significant dilation of the gallbladder, nonspecific. No calcified gallstones. Stable cyst at the superior right lobe of the liver. The spleen adrenals and kidneys are normal. No bowel obstruction or inflammation. Normal appendix. Urinary bladder, prostate, and rectum are normal. There are extremely severe arterial calcifications of the peripheral vasculature of the pelvis and legs. Degenerative changes of the spine. No acute bony lesions. IMPRESSION: 1. Stable severely dilated gallbladder, etiology unclear. This may represent chronic cholecystitis. 2. Stable severe chronic pancreatitis. 3. There is a stone in the main pancreatic duct in the pancreatic head. 4. Severe arterial disease.
[2016-04-28] MEDS ORDERED: NEOSTIGMINE ONE (08:18)
[2016-04-28] MEDS ORDERED: ROBINUL ONE (08:19)
[2016-04-28] MEDS ORDERED: ZOFRAN ONE (08:19)
[2016-04-28] MEDS ORDERED: ZEMURON ONE (08:19)
[2016-04-28] MEDS ORDERED: QUELICIN (DOSE) ONE (08:19)
[2016-04-28] MEDS ORDERED: LR 2,000 ML ONE (08:19)
[2016-04-28] MEDS ORDERED: XYLOCAINE-MPF 2% ONE (08:19)
--- NOTE | 2016-04-28 08:19 | Diag Imaging Result Document ---
PROCEDURE NAME: CHEST-2 VIEWS - 04/27/2016 PA AND LATERAL RADIOGRAPH OF THE CHEST: COMPARISON: 02/10/2015. FINDINGS: There is minimal linear scarring at the right lower lung zone, stable. The lungs are clear otherwise. There is no definite pleural fluid collection. Cardiac silhouette and central vasculature are unremarkable. IMPRESSION: Stable chest with no definite acute pathology.
--- NOTE | 2016-04-28 09:39 | Diag Imaging Result Document ---
PROCEDURE NAME: US ABDOMEN-COMPLETE - 04/28/2016 COMPLETE ABDOMINAL ULTRASOUND: COMPARISON: 10/01/2014. FINDINGS: The gallbladder is distended similar to a recent CT dated 04/27/2016. The common bile duct is dilated measuring 1.2 cm in diameter. This is significantly larger than the previous ultrasound where it measured 8 mm in diameter. There are no discrete gallstones or gallbladder wall thickening. There is no pericholecystic fluid. No discrete stone can be identified in the common bile duct by ultrasound. Much of the pancreas is obscured by bowel gas. Calcifications are identified in the head of the pancreas similar to the previous CT suggesting chronic pancreatitis. There is a 1.9 cm simple cyst at the dome of the liver. It is also seen on the previous CT. No well-defined liver mass or definite pancreatic mass can be identified by ultrasound. Sonographic Gonzales's sign was reported to be negative. The spleen and IVC are grossly unremarkable. The aorta is obscured by bowel gas. There is a 1.8 cm echogenic focus at the upper pole of the left kidney, which may represent a tiny angiomyolipoma. The kidneys are unremarkable, otherwise. IMPRESSION: 1. Distended gallbladder and dilated common bile duct similar to the previous CT. Distal obstruction cannot be excluded. 2. Calcifications involving the head of the pancreas suggesting chronic pancreatitis, but most of the pancreas is obscured. No well-defined pancreatic mass can be identified sonographically. 3. Other incidental/nonacute findings detailed above.
[2016-04-28] MEDS: FLORINEF PO SCH (10:23)
[2016-04-28] MEDS: PROAMATINE PO SCH ×3 (10:23→22:28)
[2016-04-28] MEDS: PERIDEX MT SCH ×2 (10:23→22:28)
[2016-04-28 13:28] LABS: HDL 55 mg/dL (35-55); LDL 22 mg/dL; TRIGLYCERIDES 65 mg/dL (39-160); VLDL 13 mg/dL
[2016-04-28] MEDS: PROTONIX IV SCH (13:28)
[2016-04-28] MEDS ORDERED: ATIVAN IV ONE (13:54)
[2016-04-28] MEDS ORDERED: ATIVAN ONE (13:56)
--- NOTE | 2016-04-28 14:57 | Diag Imaging Result Document ---
PROCEDURE NAME: MRI ABDOMEN W/WO CONTRAST - 04/28/2016 MRI ABDOMEN WITH MRCP: COMPARISON: CT abdomen and pelvis 04/27/2016. FINDINGS: Once again, there is significant fluid dilation of the gallbladder. No evidence of gallstones. No wall thickening or surrounding free fluid. There is mild dilation of the common bile duct but no strictures or filling defects. There is extremely severe pancreatic atrophy. There is epin-es-[id number] dilation of the main pancreatic duct which measures up to about 8 mm. There are at least 3 stones in the main pancreatic duct in the pancreatic head measuring about 7 mm. No free fluid or adenopathy visible. The liver, spleen, adrenals, and kidneys are normal. There is no abnormal contrast enhancement. IMPRESSION: 1. Significant distention of the gallbladder, nonspecific. This is chronic. 2. Chronic pancreatitis. 3. Chronic dilation of the main pancreatic duct with stones in the pancreatic head within the duct.
--- NOTE | 2016-04-28 17:03 | CONSULTATION ---
DATE OF CONSULTATION: 04/28/2016 REFERRING PHYSICIAN: Celestino Luu MD REASON FOR CONSULTATION: Abdominal pain. Distended common bile duct. HISTORY OF PRESENT ILLNESS: Mr. Brooks is a 56-year-old male who was admitted on 04/27/2016 for complaints of hyperglycemia, nausea, vomiting, shortness of breath getting worse , hypertension, presyncope for the last [address] scan on admission which showed evidence of chronic pancreatitis and marked gallbladder and common bile duct and pancreatic duct dilation suggesting distal obstruction. Multiple calcifications of pancreatic head were noted secondary to chronic pancreatitis fatty liver and 2 cm nonspecific low-density lesion noted at hepatic dome, possible complex cyst was noted. The patient was noted to have elevated lactate of 7.2 and he underwent laparoscopy last night by Dr. Barnhart which showed hemoperitoneum. Gastroenterology was consulted for management of chronic pancreatitis. PAST MEDICAL HISTORY: Alcoholism for 34 years off and on, but quit about 1 years ago. Diabetes. Fracture of the nasal bones. Osteoarthritis. Diabetic neuropathy. History of seizures. chronic pancreatitis. PAST SURGERY HISTORY: Inguinal hernia repair on the left side. Left knee arthroscopy. ALLERGIES: No known drug allergies. SOCIAL HISTORY: He lives in [place]. He quit drinking according to him 4 years ago, but according the records he has quit drinking last year in 2014 in September. He has been disabled. He is . He has 2 children. FAMILY HISTORY: Father of Alzheimer's age 70, mother of lung cancer. Brother had colon cancer. MEDICATIONS AT HOME: Florinef, gabapentin, midodrine, NovoLog 70/30. MEDICATIONS IN THE HOSPITAL: Tylenol, acetabulum/hydrocodone, Narco 5, Peridex , Florinef, Dilaudid, Humulin R, midodrine, Zofran, Protonix. REVIEW OF SYSTEMS: Denies any fevers, rigors, chills, chest pain, shortness of breath, dyspnea at rest, does complain of abdominal discomfort and which is likely secondary to a laparotomy from yesterday. Does complain of mild nausea, has not had a bowel movement today and denies any neurologic complaints. PHYSICAL EXAMINATION: Vital signs: Temperature 98.2, pulse rate of 85. Respiratory 16. Blood pressure 160/94, saturating 98% on room air. Body weight of 173 pounds 2 ounces. BMI of 25.6 kg. General appearance: He is moderately nourished, lying in bed, in mild distress with abdominal discomfort. HEENT: Mild pallor. No icterus. Pupils equal, react to light. Neck: Supple. Chest: Decreased in the bases. Cardiovascular: Regular rate and rhythm. No murmur. Abdomen: Discomfort in the abdomen. Generalized. Bowel sounds are hypoactive. Extremities: No cyanosis, clubbing, edema. Neurologic: He is alert, awake, oriented. LABORATORY: Hemoglobin and hematocrit is 13.6, 96.1, white count of 5.6, platelet count of 76,000. Sodium 140, potassium 3.5, chloride 96, bicarb 26, anion gap of 18, BUN of 4, creatinine 0.5. Glucose up 213, calcium 4, total bilirubin is 1.22, AST 21, ALT 21, alkaline phosphatase is 88, total protein 6, albumin of 3.8. Triglyceride is 65, last was 90, LDL 22, lipase of 6. ABG yesterday showed 7.42, 45 PCO2, PO2 101 and lactate of 7.2. IMAGING: CT scan of the abdomen and pelvis done yesterday which showed: 1) Stable severely dilated gallbladder, etiology unclear. This may represent chronic cholecystitis. 2) Stable severe chronic pancreatitis. 3) There is a stone in the main pancreatic duct in the pancreatic head. 4) Severe arterial disease. MRI of the abdomen done this morning showed sedimentation of the gallbladder, nonspecific chronic pancreatitis, chronic dilation of main pancreatic duct with stones at the pancreatic head and 3 stones in the main pancreatic duct in the pancreatic head measuring about 7 mm. IMPRESSION: 1. Abdominal pain, chronic, likely secondary to chronic pancreatitis and chronic pancreatic head stones and pancreatic head ductal stones as seen on magnetic resonance imaging. 2. Distention of the common bile duct and the gallbladder, chronic, likely secondary to chronic pancreatitis. 3. Diabetes. 4. Arterial disease. 5. History of alcoholism, quit about a year ago. 6. Status post laparoscopy by Dr. Barnhart last night for abdominal pain and high lactate which showed hemoperitoneum. The full operative report has not been transcribed yet per the records number. 7. Diabetic neuropathy. 8. Hypoadrenalism causing hypertension, on Florinef and midodrine at home. RECOMMENDATIONS: 1. We will continue the patient on Protonix IV once daily. We will check IgG 4 level. 1. The patient also counseled to quit alcohol completely. He has been alcohol free for a year. 2. We will encourage patient to keep good control of his diabetes. 3. The patient has pancreatic head ductal stones. We will refer him as an outpatient to [facility] for endoscopic ultrasound and pancreatic endoscopic retrograde cholangiopancreatography for lithotripsy/management of pancreatic head duct stones. 4. The patient once started on oral food, we will keep him on a low-fat diet and we will start him on pancreatic enzyme supplementations before meals. 5. We will keep a close eye on his hemoglobin and hematocrit. 6. We will start the patient on a bowel regimen once okay with the Surgery Team. We will follow along. The above was discussed with the patient and Dr. Barnhart. [facility]
--- NOTE | 2016-04-28 17:37 | PROGRESS NOTE ---
DATE: 04/28/2016 SUBJECTIVE: The patient is feeling some better. He has some pain around his incisions but not as much pain as yesterday. He still is having episodic nausea and vomiting. OBJECTIVE: Vital signs: He is afebrile. His pulse is 85, blood pressure 160/94, O2 saturation 98%. General: He is alert and oriented x4. No acute distress. CV: Regular rate and rhythm. Respiratory: No work of breathing. Gastrointestinal: Soft. Appropriately tender. Incision is clean, dry, and intact. He is nondistended. He does have some bowel sounds. LABORATORY: White blood cell count 5, hemoglobin 13, platelet count 76,000. Glucose 213. Total bilirubin 1.2. IMAGING: An MRI of his abdomen was performed today showing significant nonspecific distention of the gallbladder which is chronic in nature. There is very severe pancreatic atrophy and chronic pancreatitis changes. There are 3 stones in the main pancreatic duct and head and chronic dilation of the pancreatic duct. ASSESSMENT AND PLAN: The patient has multiple problems including pancreatic stones, chronic pancreatitis, chronic gallbladder distention probably secondary to biliary obstruction in the pancreas, new nausea and vomiting, chronic autonomic neuropathy, postural hypotension, and uncontrolled diabetes. Dr. Fuentes plans to supplement the patient's pancreatic insufficiency with Creon and ultimately may refer him to [facility] for treatment of the pancreatic head stones. In the meantime, we both feel that the gallbladder is at risk of rupturing or developing acute acalculous cholecystitis or sludge and it would be in his best interest to have a cholecystectomy. I have discussed this with the patient including the risks and benefits, such as bleeding, intra- abdominal abscess, wound infection, injury to nearby organs such as the main bile duct or intestines, and other imponderables. He understands and agrees to proceed. We will perform this tomorrow.
[2016-04-28 20:26] LABS: URINE CULTURE NEEDED? NO; URINE MICRO REVIEW NEEDED? NO; URINE SOURCE CATH
[2016-04-28 20:35] LABS: BILIRUBIN URINE NEGATIVE (NEGATIVE); BLOOD URINE NEGATIVE (NEGATIVE); COLOR ORANGE; GLUCOSE URINE 500 mg/dL (NEGATIVE); LEUKOCYTES URINE NEGATIVE (NEGATIVE); NITRITE URINE NEGATIVE (NEGATIVE); PROTEIN URINE NEGATIVE (NEGATIVE); SP GRAVITY URINE 1.016; TURBIDITY URINE CLEAR (CLEAR); UROBILINOGEN URINE NORMAL (NORMAL)
[2016-04-28 20:36] LABS: UR EPITHELIAL CELLS <10 /HPF (<10); URINE BACTERIA NEGATIVE /HPF; URINE RBC <10 /HPF (<10); URINE WBC <10 /HPF (<10)
[2016-04-29] MEDS: DILAUDID IV PRN ×6 (01:25→22:01)
[2016-04-29] MEDS: NS 1,000 ML IV SCH ×3 (01:25→21:42)
[2016-04-29 06:00] LABS: BASO% 0.2 % (0.0-0.8); EOS# 0.05 X1000 (0.0-0.7); HEMATOCRIT 38.7 % (42.0-52.0); HEMOGLOBIN 14.6 g/dL (14.0-18.0); LYMPH# 1.35 X1000 (1.2-3.4); LYMPH% 28.2 % (20.5-51.1); MANUAL DIFF NEEDED? NO; MCH 32.3 PG (27-31); MCHC 37.7 g/dL (33-37); MCV 85.6 FL (81-99); MONO# 0.35 X1000 (0.11-0.59); MONO% 7.3 % (1.7-9.3); MPV 10.1 FL (7.4-10.4); NEUT% 63.3 % (42.2-75.2); PLT 70 X1000 (130-400); RBC 4.52 XMIL (4.7-6.1)
[2016-04-29] MEDS ORDERED: KEFZOL 1 GM/D5W 50 ML IV SCH (06:00)
[2016-04-29] MEDS ORDERED: FLUZONE QUAD 2016-2017 SYRINGE IM ONE (06:00)
[2016-04-29 06:12] LABS: AGAP 17; ALBUMIN 3.7 g/dL (3.5-5.0); ALKALINE PHOSPHATASE 91 U/L (32-122); AMYLASE 35 U/L (20-200); BUN 4 mg/dL (8-22); CALCIUM 7.1 mg/dL (8.8-10.2); CHLORIDE 93 mmol/L (98-107); COSMO 272; GOT 24 U/L (10-34); GPT 17 U/L (10-44); POTASSIUM 3.4 mmol/L (3.5-5.1); SODIUM 135 mmol/L (136-145); TCO2 25 mmol/L (25-35); TOTAL BILIRUBIN 2.45 mg/dL (0.20-1.00)
[2016-04-29] MEDS: HUMULIN R SUBQ SCH ×3 (06:32→21:42)
[2016-04-29] MEDS: FLORINEF PO SCH (09:33)
[2016-04-29] MEDS: PROAMATINE PO SCH ×3 (09:33→21:46)
[2016-04-29] MEDS: PERIDEX MT SCH ×2 (09:33→21:43)
[2016-04-29] MEDS: ZOFRAN IV PRN ×2 (09:34→14:43)
--- NOTE | 2016-04-29 11:40 | PROGRESS NOTE ---
DATE: 04/29/2016 SUBJECTIVE: He is scheduled for cholecystectomy today. I discussed MRI and MRCP with the patient and told him that he has intrapancreatic ductal stones in the pancreatic head. The MRI and imaging did not reveal any evidence of pancreatic head malignancy. OBJECTIVE: Vital Signs: Temperature of 97.9 degrees, pulse of 84, respiratory rate 18, blood pressure 160/84, satting 98% on room air. General Appearance: Moderately nourished, lying in bed, in no distress. HEENT: Mild pallor. Mild icterus. Neck: Supple. Abdomen: Mild discomfort in the right upper quadrant. No rebound. No guarding. Bowel sounds present. Extremities: No cyanosis, clubbing, or edema. Neurologic: He is alert, awake , oriented. LABS: Hemoglobin and hematocrit is 14.6 and 38.7, white count of 4.7, platelet count of 70. Sodium 135, potassium 3.4, chloride 93, bicarbonate 27, BUN of 4, creatinine 1, glucose of 189, calcium is 7.1, total bilirubin is 2.45 with direct of 0.5. AST 24 and ALT 17, alkaline phosphatase 91, total protein 6, albumin of 3.7, lipase of 35. Acetone level was negative IMPRESSION AND PLAN: 1. Chronic pancreatitis manifested by calcification of the pancreas and evidence of intraductal stones in the pancreatic head measuring 7 mm. In this regard, the patient will be referred to [facility] for endoscopic ultrasound and lithotripsy , for further management of chronic calcific pancreatitis and intrapancreatic ductal stones. The patient will be put on pancrelipase 1-2 caps by mouth three times daily before meals after the surgery once he is able to start oral. 2. Dilated common bile duct, pancreatic duct and distended gallbladder with mildly elevated bilirubin. He is currently scheduled for cholecystectomy today by Dr. Barnhart. 3. Diabetes. We need to keep good management of diabetes to avoid complications like gastroparesis. At some point in time once he heals, we will schedule for esophagogastroduodenoscopy to evaluate for any kind of pyloric stenosis. 4. He will continue on gastrointestinal prophylaxis and bowel regimen. The above plan was explained to the patient and all questions were answered. [facility]
[2016-04-29] MEDS: PROTONIX IV SCH (12:49)
[2016-04-29] MEDS: SODIUM CHLORIDE 0.9% INJ SCH (12:49)
[2016-04-29] MEDS ORDERED: SENSORCAINE 0.25%/EPI 1:200,000 ONE (15:01)
[2016-04-29] MEDS ORDERED: LR 1,000 ML ONE (15:01)
[2016-04-29] MEDS ORDERED: SODIUM CHLORIDE 0.9% ONE (15:01)
[2016-04-29] MEDS ORDERED: KEFZOL 1 GM/D5W 50 ML ONE (15:09)
[2016-04-29] MEDS ORDERED: DIPRIVAN 1% ONE (17:05)
[2016-04-29] MEDS ORDERED: FENTANYL ONE (17:05)
[2016-04-29] MEDS ORDERED: TORADOL ONE (17:12)
[2016-04-29] MEDS ORDERED: NEOSTIGMINE ONE (17:12)
[2016-04-29] MEDS ORDERED: ZOFRAN ONE (17:12)
[2016-04-29] MEDS ORDERED: QUELICIN (DOSE) ONE (17:13)
[2016-04-29] MEDS ORDERED: LR 2,000 ML ONE (17:13)
[2016-04-29] MEDS ORDERED: XYLOCAINE-MPF 2% ONE (17:13)
[2016-04-29] MEDS ORDERED: ROBINUL ONE (17:13)
[2016-04-29] MEDS ORDERED: ZEMURON ONE (17:13)
--- NOTE | 2016-04-29 18:25 | Diag Imaging Result Document ---
PROCEDURE NAME: OPERATIVE CHOLANGIOGRAM - 04/29/2016 INTRAOPERATIVE CHOLANGIOGRAM: FINDINGS: There are 2 images submitted. One image shows contrast in a cystic duct and the proximal and mid common bile duct. The 2nd image shows contrast in the distal common bile duct and duodenum. There is a possible small U-shaped filling defect at the ampulla of Vater. However, this may represent mildly prominent mucosal folds in the duodenum. The possibility of small polypoid lesion or retained stone in this location cannot be excluded, however. There is passage of contrast through this area into the duodenum. Correlation with results of fluoroscopic observation is recommended.
[2016-04-29] MEDS: PERICOLACE PO SCH (21:42)
[2016-04-30] MEDS: DILAUDID IV PRN ×6 (02:11→23:07)
[2016-04-30] MEDS: NS 1,000 ML IV SCH ×2 (05:28→10:58)
[2016-04-30] MEDS: HUMULIN R SUBQ SCH ×4 (06:22→20:49)
[2016-04-30] MEDS: PROAMATINE PO SCH ×3 (09:51→16:16)
[2016-04-30] MEDS: PERIDEX MT SCH ×2 (09:51→20:49)
[2016-04-30] MEDS: FLORINEF PO SCH (09:51)
--- NOTE | 2016-04-30 11:21 | PROGRESS NOTE ---
DATE: 04/30/2016 SUBJECTIVE: The patient is feeling better. He has had less nausea and only 1 small gagging or emesis last night. He is hurting some on the right side of his abdomen. OBJECTIVE: Vital signs: He is afebrile. His vital signs are stable. General: He is alert and oriented x4. No acute distress. Gastrointestinal: Soft, nondistended, mild appropriate tenderness. His incisions are intact with some bruising around them. LABORATORY DATA: There are no laboratory data today. ASSESSMENT/PLAN: A 56-year-old male, status post laparoscopic cholecystectomy. He has chronic pancreatitis. He seems to be making some improvement postoperatively. We will advance his diet to a soft diet today and I have encouraged him to get up out of bed. He did have some urinary retention and required insertion of a Ferrell catheter a couple of times overnight. This should be monitored.
[2016-04-30] MEDS: FLOMAX PO SCH (11:25)
--- NOTE | 2016-04-30 13:46 | OPERATIVE NOTE ---
PROCEDURE DATE: 04/29/2016 PREOPERATIVE DIAGNOSES: 1. Chronic cholecystitis. 2. Chronic pancreatitis. POSTOPERATIVE DIAGNOSES: 1. Chronic cholecystitis. 2. Chronic pancreatitis. PROCEDURE PERFORMED: Laparoscopic cholecystectomy with operative cholangiogram. SURGEON: Ke Barnhart MD ESTIMATED BLOOD LOSS: 20 mL. ANESTHESIA: General. COMPLICATIONS: None apparent. SPECIMENS: Gallbladder. FINDINGS: The gallbladder was quite distended with chronic inflammation of the brandon. The bile duct was diffusely dilated from the proximal hepatic radicles to the distal bile duct; however, distally it did taper down as it entered the duodenum. There was flow of contrast into the duodenum. No filling defects were observed. TECHNIQUE: He was brought to the operating room and placed supine on the table. General anesthesia was induced. He was prepped and draped in the usual sterile fashion. His previous umbilical incision was opened sharply with a knife. The fascia was exposed. The old stitch was cut out and we entered the peritoneal cavity under direct vision with the Optiview device. A pneumoperitoneum was established. The camera was inserted. There was no evidence of injury to underlying structures. He was placed in reverse Trendelenburg and left rotation. Three 5 mm incision and ports were placed in the epigastrium and right upper quadrant per usual routine. The gallbladder was quite distended. I went ahead and punctured it with the needle tip on the suction and suctioned out a lot of thick, dark bile. This helped with retraction and mobility of the gallbladder. We then lifted up the gallbladder and retracted it superiorly over the liver. Some fatty adhesions were taken down bluntly off the gallbladder. The triangle of Calot was then dissected out with [place] forceps and hook cautery on the peritoneum and fibroareolar tissue. The critical view was obtained. The gallbladder-liver junction was seen. There were only 2 structures entering the gallbladder, the cystic duct and cystic artery. A clip was placed on the distal cystic duct. A ductotomy was made proximal to this with scissors. The Taut cholangiogram catheter was passed through an Angiocath which was advanced through the right upper quadrant. The catheter was then placed into the cystic duct and held in place with a clip. The cholangiogram was performed with findings as noted above. The clip, catheter, and Angiocath were then removed. Two clips were placed on the proximal cystic duct and it was incised distal to these two. The cystic artery was clipped proximally and distally and incised in between. A smaller posterior cystic artery branch was also clipped proximally and distally and incised in between. The gallbladder was taken off the liver bed using hook cautery, obtaining hemostasis along the way, without any further spillage of bile. The gallbladder was then placed into an EndoCatch bag. I then inspected the dissection area. There were no signs of any bleeding or bile leakage. We suctioned out the old bile and a little old blood and irrigated this area and suctioned out the irrigation. I then brought the gallbladder out through the umbilical port site under direct vision. We then desufflated the abdomen and removed the ports. The umbilical fascia was closed with a [id number] 0 Vicryl. The skin was closed with running 4-0 subcuticular Monocryl and Steri-Strips. There were no apparent complications. He was awakened in stable condition and transferred to the recovery room.
[2016-04-30] MEDS: PROTONIX IV SCH (13:53)
[2016-04-30] MEDS: SODIUM CHLORIDE 0.9% INJ SCH (13:53)
[2016-04-30] MEDS: PERICOLACE PO SCH (20:49)
[2016-04-30] MEDS: ZOFRAN IV PRN (23:07)
[2016-05-01] MEDS: NS 1,000 ML IV SCH ×3 (00:26→18:27)
[2016-05-01] MEDS: DILAUDID IV PRN ×3 (02:03→18:27)
[2016-05-01] MEDS: HUMULIN R SUBQ SCH ×4 (06:07→20:15)
[2016-05-01 06:14] LABS: BASO% 0.2 % (0.0-0.8); EOS# 0.14 X1000 (0.0-0.7); EOS% 3.3 % (0.0-10.0); HEMATOCRIT 33.3 % (42.0-52.0); HEMOGLOBIN 12.3 g/dL (14.0-18.0); LYMPH% 35.3 % (20.5-51.1); MANUAL DIFF NEEDED? YES; MCH 31.5 PG (27-31); MCHC 36.9 g/dL (33-37); MCV 85.2 FL (81-99); MONO# 0.45 X1000 (0.11-0.59); MONO% 10.6 % (1.7-9.3); MPV 10.1 FL (7.4-10.4); NEUT% 50.6 % (42.2-75.2); PLT 75 X1000 (130-400); RBC 3.91 XMIL (4.7-6.1)
[2016-05-01 06:36] LABS: HEMOGLOBIN A1C 8.9 % (4.8-6.0)
[2016-05-01 06:48] LABS: AGAP 16; BUN 5 mg/dL (8-22); CALCIUM 7.6 mg/dL (8.8-10.2); CHLORIDE 97 mmol/L (98-107); COSMO 274; POTASSIUM 3.1 mmol/L (3.5-5.1); SODIUM 138 mmol/L (136-145); TCO2 25 mmol/L (25-35)
[2016-05-01 07:09] LABS: BANDS 2 % (0-1); BASO 2 % (0-1); EOS 4 % (1-10); LYMPHS 26 % (21-51); MONO 2 % (1-9)
--- NOTE | 2016-05-01 08:52 | PROGRESS NOTE ---
DATE: 05/01/2016 SUBJECTIVE: Mr. Brooks is postop day 1, status post laparoscopic cholecystectomy per Dr. Barnhart. This morning, he appears to be comfortable, awake and cooperative. OBJECTIVE: On examination of his abdomen all his incision sites are healing well. He does have bruising at the umbilicus and below. His heart rate is 84, blood pressure 107/65, O2 saturation 98% room air. He has no work of breathing. He is voiding without difficulty. He is eating some of his meal. He is afebrile on no antibiotics. He is a diabetic. His serum glucoses. Have been 132 to 301. His BUN and creatinine are 5 and 0.4. His hematocrit is 33%. PLAN: He is on a GI soft diet and he is surgically doing well status post laparoscopic cholecystectomy. Further medical care per Dr. Celestino Luu. On discharge, he will have to return to see Dr. Ke Barnhart approximately 1 week after discharge.
[2016-05-01] MEDS: FLORINEF PO SCH (09:42)
[2016-05-01] MEDS: FLOMAX PO SCH (09:42)
[2016-05-01] MEDS: PROAMATINE PO SCH ×3 (09:42→17:03)
[2016-05-01] MEDS: PERIDEX MT SCH ×2 (09:42→20:15)
[2016-05-01 11:41] LABS: AMYLASE 20 U/L (20-200); LIPASE 5 U/L (13-60)
--- NOTE | 2016-05-01 12:07 | PROGRESS NOTE ---
DATE: 05/01/2016 SUBJECTIVE: The patient says he is starting to feel a little better. He ate some this morning. He is going to get up and walk around some. OBJECTIVE: Vital Signs: Blood pressure 156/85. Respirations 18. Pulse 72. Temperature 98.6 degrees Fahrenheit. HEENT: He is normocephalic. EOMs intact. PERRLA. Throat clear. Lungs: Clear to auscultation and percussion without rhonchi, rales, or wheezes. Heart: Regular rate and rhythm without murmurs, gallops, or friction rubs. Abdomen: Soft with some bowel sounds. He has bruising from his cholecystectomy sites, these were done laparoscopically. On CT scan, he did show a stone in the pancreatic duct. I am not sure how that was treated. He does not seem to be having any undue pain at this time other than what one would expect status post cholecystectomy two days ago. PLAN: Go ahead and do a serum amylase and lipase. His initial ones when he came in were normal. ASSESSMENT: 1. Acute cholecystitis. 2. Chronic pancreatitis. PLAN: Continue care and order tests as above.
[2016-05-01] MEDS: SODIUM CHLORIDE 0.9% INJ SCH (14:16)
[2016-05-01] MEDS: PROTONIX IV SCH (14:16)
[2016-05-01] MEDS: PERICOLACE PO SCH (20:15)
[2016-05-02] MEDS: DILAUDID IV PRN ×4 (00:13→21:48)
[2016-05-02] MEDS: HUMULIN R SUBQ SCH ×4 (06:11→21:49)
[2016-05-02] MEDS: FLORINEF PO SCH (09:54)
[2016-05-02] MEDS: PROAMATINE PO SCH ×3 (09:54→17:41)
[2016-05-02] MEDS: FLOMAX PO SCH (09:54)
[2016-05-02] MEDS: PERIDEX MT SCH ×2 (09:55→21:49)
--- NOTE | 2016-05-02 10:34 | PROGRESS NOTE ---
DATE: 05/02/2016 SUBJECTIVE: The patient says he is feeling better. Had a bowel movement last night. He has been up and walking around. Still has some abdominal pain from his surgery. OBJECTIVE: Vital Signs: Blood pressure is 106/71, respirations 18, pulse 77, temperature 98.8 degrees Fahrenheit. HEENT: Normocephalic. EOMs intact. PERRLA. Throat clear. Lungs: Clear to auscultation and percussion without rhonchi, rales, or wheezes. Heart: Regular rate and rhythm without murmurs, gallops, or friction rubs. Abdomen: Soft but a little tender. He has some ecchymosis around his surgical sites. Neurological: Examination intact grossly. Laboratory Data: Blood sugar was a little up at 270. We will get him on a diabetic diet as he has been diabetic for about 10 years. ASSESSMENT: 1. Acute cholecystitis. 2. Chronic pancreatitis. Noticed that amylase and lipase yesterday were normal. 3. Diabetes mellitus. PLAN: Continue support.
[2016-05-02] MEDS: NS 1,000 ML IV SCH ×2 (13:37→21:49)
[2016-05-02] MEDS: PROTONIX IV SCH (13:44)
[2016-05-02] MEDS: SODIUM CHLORIDE 0.9% INJ SCH (13:44)
[2016-05-02] MEDS: PERICOLACE PO SCH (21:49)
[2016-05-03] MEDS: NS 1,000 ML IV SCH (01:05)
[2016-05-03] MEDS: DILAUDID IV PRN (01:11)
[2016-05-03 08:12] VITALS: BP 160/89
[2016-05-03] MEDS: HUMULIN R SUBQ SCH ×2 (09:53→11:15)
[2016-05-03] MEDS: PROAMATINE PO SCH (09:53)
[2016-05-03] MEDS: FLOMAX PO SCH (09:53)
[2016-05-03] MEDS: PERIDEX MT SCH (09:53)
[2016-05-03] MEDS: FLORINEF PO SCH (09:53)
--- NOTE | 2016-05-03 12:04 | PROGRESS NOTE ---
DATE: 05/03/2016 SUBJECTIVE: The patient is currently resting. He is currently awaiting discharge. He is able to take oral. He is improving after cholecystectomy. OBJECTIVE: Vital signs: Temperature 98.3, pulse rate 76, respiratory rate 20, blood pressure 160/89 saturating 96% on room air. General Appearance: Moderately built, moderately nourished, lying in bed, in no distress. HEENT: Mild pallor. No icterus. Neck: Supple. Abdomen: Soft, nontender, nondistended. Bowel sounds are present. No guarding. Extremities: No cyanosis, clubbing, edema. Neurologic: He is alert, awake, oriented. LAB: Hemoglobin and hematocrit are 12.3 and 33.3, white count of 4.2, platelet count of 75,000. Blood glucose of 247. His IgG 4 level was 63.4 which is normal. Triglycerides 65. IMPRESSION AND PLAN: 1. Distended gallbladder status post cholecystectomy. Not improving. Being followed Dr. Barnhart. 2. Chronic pancreatitis manifested by calcification at the head of the pancreas and intrapancreatic ductal stones measuring 7 mm. In this regard we will start the patient on pancrelipase 32439 units (Lipase) 1 capsules before meals. The risks and side effects discussed. He will need to be on acid suppression in the form of Prilosec once daily. He will need to be referred to [facility] for US and possible lithotripsy of pancreatic ductal stones. 3. Diabetes. Currently managed by the primary team. 4. Gastrointestinal prophylaxis and bowel regimen to continue. The above was discussed with the patient and all questions answered. The patient is recommended follow up in the clinic in 4 weeks after discharge. [facility]
--- NOTE | 2016-05-03 22:07 | DISCHARGE SUMMARY ---
ADMISSION DATE: 04/27/2016 DISCHARGE DATE: 05/03/2016 DISCHARGING DIAGNOSIS: Abdominal pain due to symptomatic gallbladder disease and also choledochal cyst. SECONDARY DIAGNOSES: 1. Dysautonomia due to diabetic neuropathy. 2. Complicated diabetes. 3. History of alcohol abuse. 4. Seizures due to alcohol withdrawals. 5. Benign prostatic hypertrophy. 6. Chronic pancreatitis with intrapancreatic stones. 7. Thrombocytopenia. CONSULTANTS: 1. Ke Barnhart MD. 2. Carlos Fuentes MD. PROCEDURES: 1. Diagnostic laparoscopy. 2. No bowel ischemia. Laparoscopic cholecystectomy. BRIEF HISTORY: Please see the H and P that was done by, Dr. Rickey Garcia, hospitalist. In brief, he is a 55-year-old, white gentleman who was admitted to the hospital basically with nausea and vomiting. He had elevated liver function tests. Initially lactate was high. They thought he had ischemic colon. Diagnostic laparoscopy was done and findings were reassuring. He continued to have nausea and vomiting and on subsequent workup, patient had a stone in the pancreatic duct. He also has a choledochal cyst. Ultrasound showed distended gallbladder with elevated LFTs. He was not able to tolerate the diet very well. Dr. Barnhart did a laparoscopic cholecystectomy. Postoperative course was uneventful except bladder retention due to BPH. He was started on Flomax. Prostate was enlarged. PSA was normal. He was able to tolerate the diet very well. LABORATORIES: At the time of discharge as follows: CBC: White cell count 4.2, hematocrit 33, platelet count 75,000. SMA 7: Sodium 138, potassium 3.1, BUN 5, creatinine 0.5, glucose 124. A1c 8.9. Calcium 7.6. Bilirubin 2.4, direct is 0.5. Amylase and lipase normal. PSA is 0.68. Intraoperative cholangiogram: Possible filling defect in the ampulla of Vater, unable to pass the contrast. MRI of the abdomen: Significant distention of the bladder, chronic pancreatitis, chronic dilatation of the pancreatic duct with stones in the pancreatic head. CT scan of the abdomen and pelvis: Distended gallbladder with chronic cholecystitis. Chronic pancreatitis, stone in the main pancreatic duct, peripheral vascular disease. Chest x-ray stable. Abdominal ultrasound: Distended gallbladder, calcification in the head of the pancreas. VACCINATIONS: Flu vaccine 05/03/2016, pneumococcal vaccine 10/08/2014, tetanus 09/28/2014. DISCHARGE INSTRUCTIONS: The patient has been discharged home with the following instructions: 1. Florinef 0.1 mg in the morning, Neurontin 600 t.i.d., ProAmatine 5 mg p.o. t.i.d., NovoLog 70/30 10 units subcutaneous b.i.d., Creon capsule 1 tablet t.i.d., Zofran for p.r.n. nausea, Ultracet 1 tablet q.6 h. pain, Flomax 0.4 daily. 2. Follow up for outpatient clinic with Dr. Gina CUMMINGS for pancreatic stones and follow up in my office in 1 week.
== END 2016-05-03 11:53 | disposition home or self-care (01) | DRG 417 ==
LOC: EDUNIT# → EDBD → ED 14:45 → 3N 22:42 → 4N 22:59
PROVIDERS: ADMIT Internal Medicine; ATTEND Internal Medicine
PROC: 0WJG4ZZ Inspection of Peritoneal Cavity, Percutaneous Endoscopic Approach (ICD-10-PCS; 2016-04-28)
PROC: BF101ZZ Fluoroscopy of Bile Ducts using Low Osmolar Contrast (ICD-10-PCS; 2016-04-29)
PROC: 0FT44ZZ Resection of Gallbladder, Percutaneous Endoscopic Approach (ICD-10-PCS; principal; 2016-04-29 15:40)
DX: K81.1 Chronic cholecystitis (principal); K66.1 Hemoperitoneum; E87.2 Acidosis; E11.43 Type 2 diabetes mellitus with diabetic autonomic (poly)neuropathy; E11.65 Type 2 diabetes mellitus with hyperglycemia; D69.6 Thrombocytopenia, unspecified; Q44.4 Choledochal cyst; K86.0 Alcohol-induced chronic pancreatitis; E86.9 Volume depletion, unspecified; K76.0 Fatty (change of) liver, not elsewhere classified; F10.21 Alcohol dependence, in remission; M19.90 Unspecified osteoarthritis, unspecified site; K86.89 Other specified diseases of pancreas; I77.9 Disorder of arteries and arterioles, unspecified; N40.1 Benign prostatic hyperplasia with lower urinary tract symptoms; R33.8 Other retention of urine; Z23 Encounter for immunization; Z83.3 Family history of diabetes mellitus; Z80.1 Family history of malignant neoplasm of trachea, bronchus and lung; Z80.0 Family history of malignant neoplasm of digestive organs; Z79.4 Long term (current) use of insulin; Z79.52 Long term (current) use of systemic steroids; Z79.899 Other long term (current) drug therapy
CPT/HCPCS: 36415; 71020; 74177; 74183; 74300; 76700; 80048; 80053; 80061; 80076; 81001; 82009; 82150; 82784; 82787; 82805; 82948; 83036; 83605; 83690; 84153; 84484; 85025; 85379; 88304; 93005; 94640; 94761; 96374; 96375; A9579; C1751; C9113; J0330; J0690; J1170; J1885; J2060; J2270; J2405; J3010; J7030; J7120; Q2038; Q9966; Q9967; J2710; S0164

== ENCOUNTER 2016-10-25 08:12 | Inpatient (IN) ==
[2016-10-25] MEDS ORDERED: NS 1,000 ML IV ONE ×4 (08:33→12:21)
--- NOTE | 2016-10-25 08:37 | PROVIDER DOCUMENTATION ---
HPI-General Adult - General Chief Complaint: Shortness of Breath Stated Complaint: shortness of breath, weak Time Seen by Provider: 10/25/16 08:25 Source: patient Allergies/Adverse Reactions: Patient Allergies Allergy/AdvReac Type Severity Reaction Status Date / Time No Known Allergies Allergy Verified 10/25/16 08:16 Home Medications: Home Medication List Medication Instructions Recorded Confirmed Last Taken Type Fludrocortisone [Florinef] 0.1 mg PO QAM #0 tablet 01/20/15 10/25/16 04/27/16 Rx Gabapentin [Neurontin] 600 mg PO TID #0 tablet 01/20/15 10/25/16 04/27/16 Rx Midodrine [Proamatine] 5 mg PO TID #0 tablet 01/20/15 10/25/16 04/27/16 Rx Insulin Novolog 70/30 [Novolog Mix See Protocol SUBQ BID 04/27/16 10/25/1604/27 History 70/30] Tamsulosin [Flomax] 0.4 mg PO DAILY #30 capsule 05/03/16 10/25/16 Unknown Rx Meloxicam [Meloxicam] 1 tab PO DAILY 10/25/16 10/25/16 Unknown History - History of Present Illness -Gen Adult Nature of Presenting Problems: Came in by EMS, says feels 2 weak to breathe, having trouble catching his breath. No CP no known fever. occ [employer] cough. Says he has had N/V/D for past 2 days. This am, BP was low. Location of Pain/Injury: reports: none Pain Radiation: reports: no radiation Quality of Pain: reports: none Onset/Duration: reports: 1-3 hours ago Timing: reports: still present Context/Activities at Onset: reports: none Modifying Factors: improves with: nothing Associated Symptoms: reports: cough, diarrhea, malaise, nausea, shortness of breath, vomiting Similar Symptoms Previously?: No Recently seen or treated by another doctor?: No - Diabetes Related Context Context: reports: high blood sugar Review of Systems - Adult - REVIEW OF SYSTEMS - ADULT Constitutional: reports: see HPI Eyes: reports: no symptoms reported Ears, Nose, Mouth & Throat: reports: no symptoms reported Cardiovascular: reports: no symptoms reported Respiratory: reports: see HPI Gastrointestinal: reports: see HPI Genitourinary: reports: no symptoms reported Musculoskeletal: reports: no symptoms reported Integumentary: reports: no symptoms reported Neurological: reports: other (neuropathy to feet) Psychiatric: reports: no symptoms reported Endocrine: reports: no symptoms reported Hematologic/Lymphatic: reports: no symptoms reported Allergic/Immunologic: reports: no symptoms reported Past History - Adult - PAST MEDICAL HISTORY-ADULT Review of Records: reports: Medications Reviewed Major Childhood Illnesses: reports: denies history Cardiovascular: reports: other (orthostatic hypotension) Neurological: reports: Seizures/Epilepsy Psychiatric: reports: depression Endocrine/Immune: reports: Diabetes Diabetes Type: Type 1 - PRIOR SURGERIES/PROCEDURES Surgical/Procedure History: reports: hernia repair, other (neuropathy; dysautonomia) - IMMUNIZATION STATUS Childhood Immunizations: See Nurse Assessment Flu Vaccine: See Nurse Assessment - FAMILY HISTORY Family History: diabetes - SOCIAL HISTORY Smoking: denies Physical Exam-General - PHYSICAL EXAM-ADULT Initial Vital Signs Reviewed: Yes - CONSTITUTIONAL General Appearance: appears well, alert, mild distress - EYES Eyes: PERRL/EOMI, pink conjunctivae - HEAD, EARS, NOSE, MOUTH & THROAT HENMT: normocephalic/atraumatic, moist mucous membranes, normal ENT inspection, pharynx normal - NECK Neck: full range of motion, supple, normal inspection - RESPIRATORY Respiratory: lungs clear, normal breath sounds - CARDIOVASCULAR Cardiovascular: regular rate, rhythm, no gallop, no murmur - GASTROINTESTINAL (ABDOMEN) Abdominal Exam: normal bowel sounds, non tender, tenderness (mild diffuse. 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 as tested, grossly normal, no motor/sensory deficits - PSYCHIATRIC Psych/Mental Status: normal mood/affect, normal thought content, normal thought process, oriented x 3 Progress - PLAN OF CARE/RESULTS Progress/Plan/Lab Results: Vital Signs - 8 hr 10/25/16 08:20 Temperature 99.1 F Pulse Rate 79 Respiratory Rate 18 Blood Pressure 156/95 O2 Sat by Pulse Oximetry 92 L Laboratory Results - last 24 hr 10/25/16 08:21 POC Glucose 421 H D Orders Category Date Time Status Cardiac Monitoring DIRECTED Care 10/25/16 08:24 Active Oxygen Therapy- ED Nursing DIRECTED Care 10/25/16 08:24 Active Saline Loc NOW Care 10/25/16 08:24 Active CHEST-2 VIEWS [RAD] Stat Exams 10/25/16 08:24 Ordered ABG [RESP] Routine Lab 10/25/16 08:26 Ordered CBC WITH ELECTRONIC DIFF [HEME] Stat Lab 10/25/16 07:30 Received CK PROFILE [SP CHEM] Stat Lab 10/25/16 07:30 Received COMPREHENSIVE METABOLIC PANEL [CHEM] Stat Lab 10/25/16 07:30 Received D-D[address]ER [address] [COAG] Stat Lab 10/25/16 07:30 Received MAGNESIUM [CHEM] Stat Lab 10/25/16 07:30 Received PRO B-NATRIURETIC PEPTIDE Stat Lab 10/25/16 07:30 Received [address]IME WITH INR PL [COAG] Stat Lab 10/25/16 07:[address] [COAG] Stat Lab 10/25/16 07:30 Received TROPONIN T Stat Lab 10/25/16 07:30 Received EKG [EKG] Stat Ther 10/25/16 08:24 Ordered Result Diagrams: 10/25/16 07:30 10/25/16 07:30 - EKG 1 Time of EKG reading by physician:: 08:48 EKG Read and Signed by:: Ben Carlin EKG Interpretation (*Must complete 3 of following elements*): Normal Rate: 79 Rhythm: NSR [place]: normal QRS: normal - XRAY 1 XRAY Study: Chest Impression: Normal - CONSULTS/PCP/HOSPITALIST Notification #1 *Consult/PCP/Hospitalist*: Kiarra Time Discussed: 12:17 Consult Disposition: Admit Departure - Departure Date of Disposition Decision: 10/25/16 Time of Disposition Decision: 09:42 DIAGNOSIS: Sepsis, Dyspnea Disposition: ADMITTED INPATIENT 09 Certified Medical Emergency: Emergent Condition: Good Referrals and Follow-Ups: Alin Luu MD [Primary Care Provider] - - Critical Care Note This patient required my direct & personal management of CC.: No
[2016-10-25 08:50] LABS: INR 1.45 (0.86-1.15); PROTIME 17.9 Seconds (12.1-15.5)
[2016-10-25 08:51] LABS: BE 6.3 mmoll (-3.0-3.0); BLOOD TYPE ARTERIAL; DRAW SITE R BRACHIAL; METHB 1.4 % (0.0-1.5); O2(CT) 18.7 mL/dL (15.0-23.0); PCO2(98.6) 48 mmHg (35-45); PO2(98.6) 63 mmHg (60-100); SAMPLE BLOOD; THB 14.6 g/dL (11.5-17.4); pH(98.6) 7.43 (7.35-7.45)
[2016-10-25 08:51] LABS: PTT PL 35.4 Seconds (22.6-43.9)
[2016-10-25 08:55] LABS: ALLEN TEST NO; MODALITY ROOM AIR
[2016-10-25 08:57] LABS: AGAP 16; ALBUMIN 4.1 g/dL (3.5-5.0); ALKALINE PHOSPHATASE 132 U/L (32-122); BUN 4 mg/dL (8-22); CALCIUM 7.9 mg/dL (8.8-10.2); CHLORIDE 91 mmol/L (98-107); CK PROFILE 178 U/L (24-204); COSMO 291; GOT 80 U/L (10-34); GPT 95 U/L (10-44); MAGNESIUM 1.4 mg/dL (1.5-2.7); POTASSIUM 3.1 mmol/L (3.5-5.1); SODIUM 136 mmol/L (136-145); TCO2 29 mmol/L (25-35); TOTAL PROTEIN 6.5 g/dL (6.3-8.3)
--- NOTE | 2016-10-25 08:57 | EKG Report ---
Test Performed on : 10/25/2016 08:37:21 AM Test Reason : CHEST PAIN Blood Pressure : / mmHG Vent. Rate : 079 BPM Atrial Rate : 079 BPM P-R Int : 178 ms QRS Dur : 090 ms QT Int : 418 ms P-R-T Axes : 064 055 064 degrees QTc Int : 479 ms Normal sinus rhythm. Normal ECG When compared with ECG of 27-APR-2016 16:43, No significant change was found Unconfirmed Result
[2016-10-25] MEDS ORDERED: HUMULIN R IV ONE (09:06)
[2016-10-25] MEDS ORDERED: ZOSYN 3.375 GM/NS 3.375 GM/50 ML IVPB IV ONE (09:07)
[2016-10-25] MEDS ORDERED: VANCOMYCIN 1 GM/NS 1 GM/250 ML IVPB IV ONE ×2 (09:07→13:30)
[2016-10-25 09:09] LABS: BASO% 0.6 % (0.0-0.8); EOS# 0.04 X1000 (0.0-0.7); EOS% 1.2 % (0.0-10.0); HEMATOCRIT 38.4 % (42.0-52.0); HEMOGLOBIN 14.6 g/dL (14.0-18.0); LYMPH# 1.39 X1000 (1.2-3.4); LYMPH% 42.2 % (20.5-51.1); MANUAL DIFF NEEDED? NO; MCH 32.3 PG (27-31); MONO# 0.22 X1000 (0.11-0.59); MONO% 6.7 % (1.7-9.3); MPV 9.3 FL (7.4-10.4); NEUT% 49.3 % (42.2-75.2); PLT 129 X1000 (130-400); RBC 4.52 XMIL (4.7-6.1)
--- NOTE | 2016-10-25 09:19 | Diag Imaging Result Doc PS360 ---
EXAM: CHEST-2 VIEWS - 10/25/2016 HISTORY: CP TECHNIQUE: AP and lateral chest COMPARISON: 04/27/2016 FINDINGS: Heart size is within normal limits. The lungs appear clear. There is no pleural effusion or pneumothorax identified. There is thoracic spondylosis noted. IMPRESSION: No evidence of acute disease. Electronically signed by Jerson Carrillo 10/25/2016 9:17 AM
[2016-10-25] MEDS ORDERED: HUMULIN R (PARKWAY) 100 UNITS in NS 100 ML IV SCH (10:00)
[2016-10-25] MEDS ORDERED: NS 1,000 ML ONE (10:47)
[2016-10-25 10:52] LABS: URINE CULTURE PL NEEDED? NO
[2016-10-25 11:41] LABS: BILIRUBIN URINE NEGATIVE (NEGATIVE); BLOOD URINE NEGATIVE (NEGATIVE); CLARITY CLEAR (CLEAR); COLOR YELLOW; LEUKOCYTES URINE NEGATIVE (NEGATIVE); NITRITE URINE NEGATIVE (NEGATIVE); PROTEIN URINE NEGATIVE (NEGATIVE); UROBILINOGEN URINE NORMAL
[2016-10-25 11:44] LABS: URINE EPITHELIAL CELLS <10 /HPF (<10); URINE SOURCE CLEAN CATCH
[2016-10-25] MEDS ORDERED: ZOFRAN IV PRN (12:21)
[2016-10-25] MEDS ORDERED: TYLENOL PO PRN (12:21)
[2016-10-25] MEDS ORDERED: VANCOMYCIN IV PER PHARMACY MISC SCH (12:30)
[2016-10-25] MEDS ORDERED: POTASSIUM CHLORIDE 20 MEQ/SWI 20 MEQ/100 ML IVPB IV ONE (14:31)
[2016-10-25] MEDS: DILAUDID IV PRN ×3 (14:48→21:29)
--- NOTE | 2016-10-25 15:51 | Diag Imaging Result Doc PS360 ---
EXAM: US ABDOMEN-COMPLETE - 10/25/2016 HISTORY: abdominal pain TECHNIQUE: Ultrasound abdomen complete COMPARISON: 04/28/2016 FINDINGS: There is been interval cholecystectomy. The common bile duct is distended up to 1.4 cm. The common bile duct was distended up to 1.2 cm prior to the cholecystectomy. There is no stone identified in the visualized portion of the common bile duct, but part of the duct is obscured by bowel gas artifacts. The visualized pancreatic head shows no discrete mass or inflammation. The remainder of the pancreas is obscured by bowel gas artifacts. There is a 1.9 cm hepatic cyst. There are no other abnormalities of the liver or spleen identified. Doppler image shows hepatopedal flow in the portal vein. There is no ascites seen. The right kidney is unremarkable. There are artifacts over portions of the left kidney which limit detail. There is no discrete left renal abnormality which is distinguishable from artifacts identified. Abdominal aorta and IVC appear normal caliber. IMPRESSION: Status post cholecystectomy. Distended common bile duct up to 1.4 cm. No discrete etiology for the distended common bile duct is apparent, other than the postcholecystectomy state. Correlation with clinical evaluation is recommended. 1.9 cm hepatic cyst. Electronically signed by Jerson Carrillo 10/25/2016 3:49 PM
[2016-10-25 16:29] LABS: AMYLASE 23 U/L (20-200); LIPASE 6 U/L (13-60)
[2016-10-25] MEDS ORDERED: MAGNESIUM SULFATE 4 GM/S.W.I. 4 GM/100 ML IVPB IV ONE (16:37)
[2016-10-25] MEDS ORDERED: ZOSYN 3.375 GM/NS 3.375 GM/50 ML IVPB IV SCH (17:00)
[2016-10-25] MEDS: SODIUM CHLORIDE 0.9% INJ PRN ×2 (17:04→22:25)
[2016-10-25] MEDS: PHENERGAN IV PRN ×2 (17:04→22:25)
--- NOTE | 2016-10-25 17:51 | HISTORY AND PHYSICAL ---
PRIMARY CARE PHYSICIAN: Dr. Celestino Luu CHIEF COMPLAINT: Shortness of breath and nausea, vomiting, and diarrhea for 2 days. HISTORY OF PRESENTING ILLNESS: This is a 56-year-old male, who presents to [facility] ER with complaints of shortness of breath and nausea, vomiting, diarrhea for 2 days that has progressively worsened. On arrival, he had a temperature of 99.1 degrees, saturating 92% on room air. Laboratory data showed a blood sugar of 494, potassium of 3.1. He had a plasma lactate of 6.3. Amylase and lipase were normal. We did an abdomen ultrasound that shows status post cholecystectomy with a distended common bile duct up to 1.4 cm but no discrete etiology for the distended common bile duct was apparent, so he was admitted for further evaluation and treatment. It is noted that his acetone level was negative. PAST MEDICAL HISTORY: Diabetes type 1. Orthostatic hypotension. Seizures and dysautonomia. PAST SURGICAL HISTORY: Cholecystectomy and a hernia repair. FAMILY HISTORY: Diabetes. SOCIAL HISTORY: Currently lives alone. Denies any tobacco use. States he drinks alcohol occasionally. But I could not get a clear story from him. He told the nurse that he used to drink heavily but has not drank in a long time. He told me he drinks occasionally, had a 6 pack of beer and drank half of them yesterday, so it is unclear exactly how much he drinks but he is noted to have a smell of alcohol to him and no illicit drugs. ALLERGIES: He has no known drug allergies. HOME MEDICATIONS: We will hold all of these as he is NPO right now, but he takes Florinef 0.1 mg p.o. q.a.m., Neurontin 600 mg p.o. t.i.d., NovoLog 70/30 subcu b.i.d., meloxicam 15 mg 1 p.o. daily. ProAmatine 5 mg p.o. t.i.d., Flomax 0.4 mg p.o. daily. LABORATORY DATA: Showed a white blood cell count of 3.29, hemoglobin 14.6, hematocrit 38.4, platelets 129,000. PT and INR of 17.9 and 1.45 with a D-dimer of 0.46. A pH of 7.43, pCO2 of 48, PO2 63, bicarb 29.7. Sodium 136, potassium 3.1, chloride 91, CO2 29, BUN of 4. Creatinine 0.6. Glucose 494. Magnesium of 1.4. AST of 80, ALT 95, alkaline phosphatase 132. Creatine kinase of 178. Troponin less than 0.010, proBNP of 40, amylase of 23, lipase 6, plasma lactate of 6.3. Urinalysis was negative. Acetone level was negative. Chest x-ray showed no evidence of acute disease. EKG normal sinus rhythm at 79. Abdominal ultrasound showed status post cholecystectomy, distended common bile duct up to 1.4 cm. No discrete etiology for the distended common bile duct is apparent other than the post cholecystectomy state. REVIEW OF SYSTEMS: He denied any fever, chills, blurred vision, dizziness, chest pain, coughing, shortness of breath. He has positive for epigastric abdominal pain, nausea, vomiting, diarrhea. Denied any burning or hurting with urination. PHYSICAL EXAMINATION: VITAL SIGNS: On arrival, he had a temperature of 99.1 degrees, pulse 79, respirations 18, blood pressure 156/95, saturating 92% on room air. GENERAL: This is a 56-year-old male who is lying in the bed and answering questions appropriately. HEENT: Normocephalic and atraumatic. Pupils are equal, round, reactive to light. Extraocular movements are intact. Oropharynx and nares are clear. NECK: Supple. LUNGS: Clear to auscultation bilaterally with equal lung expansion and chest wall movement. HEART: Regular rate and rhythm. No murmurs, rubs, or gallops. ABDOMEN: Soft, tender to epigastric area to palpation. Bowel sounds are present x4 quadrants. Patient is noted to be actively vomiting clear liquid at this time. EXTREMITIES: No clubbing, cyanosis, or edema. NEUROLOGICAL: The cranial nerves 2-12 are grossly intact. ASSESSMENT: 1. Nausea and vomiting, diarrhea. 2. Elevated liver function tests. 3. Hypomagnesemia. 4. Hypokalemia. PLAN: He was admitted to the intensive care unit. Placed on telemetry. We will hold him NPO at this time. Place him on Dilaudid 1 mg IV q.4 hours p.r.n., supplement with potassium 20 mEq IV x1. Normal saline at 150 mL an hour. We will give him Phenergan 25 mg IV q.4 hours p.r.n., and Zofran 8 mg IV q.4 hours p.r.n. We will check a CT of the abdomen and pelvis in the a.m. if the patient continues to have nausea and vomiting after being held NPO tonight. We will give him magnesium 4 g IV x1 now and recheck labs in a.m. Dictated by RYAN Fabian for Jama Plunkett MD cc: RYAN Fabian MD P. J. Reddy, MD
[2016-10-25 18:38] LABS: UR AMPHETAMINES QUAL NONE DETECTED (NONE DETECT); UR BARBITUATES QUAL NONE DETECTED (NONE DETECT); UR BENZODIAZEPIN QUAL NONE DETECTED (NONE DETECT); UR CANNABINOIDS QUAL NONE DETECTED (NONE DETECT); UR COCAINE QUAL NONE DETECTED (NONE DETECT); UR MDMA QUAL NONE DETECTED (NONE DETECT); UR METHADONE QUAL NONE DETECTED (NONE DETECT); UR METHAMPHETAMINE QUAL NONE DETECTED (NONE DETECT); UR OPIATES QUAL NONE DETECTED (NONE DETECT); UR OXYCODONE QUAL NONE DETECTED (NONE DETECT); UR PCP QUAL NONE DETECTED (NONE DETECT); UR TCA QUAL NONE DETECTED (NONE DETECT)
[2016-10-25] MEDS: HUMULIN R SUBQ PRN (21:29)
[2016-10-26] MEDS ORDERED: VANCOMYCIN 1,900 MG in NS 500 ML IV SCH (01:00)
[2016-10-26] MEDS: DILAUDID IV PRN ×3 (01:49→20:34)
[2016-10-26] MEDS: HUMULIN R SUBQ PRN (06:36)
[2016-10-26 07:21] LABS: BASO% 0.4 % (0.0-0.8); EOS# 0.02 X1000 (0.0-0.7); EOS% 0.4 % (0.0-10.0); HEMATOCRIT 42.9 % (42.0-52.0); HEMOGLOBIN 15.7 g/dL (14.0-18.0); IMM GRAN# 0.01 X1000 (0.0-0.04); IMM GRAN% 0.2 % (0.0-0.5); LYMPH# 1.21 X1000 (1.2-3.4); LYMPH% 21.4 % (20.5-51.1); MANUAL DIFF NEEDED? NO; MCH 31.6 PG (27-31); MCHC 36.6 g/dL (33-37); MCV 86.3 FL (81-99); MONO# 0.68 X1000 (0.11-0.59); MPV 10.1 FL (7.4-10.4); NEUT% 65.6 % (42.2-75.2); PLT 106 X1000 (130-400); RBC 4.97 XMIL (4.7-6.1)
[2016-10-26 07:33] LABS: HEMOGLOBIN A1C 7.6 % (4.8-6.0)
[2016-10-26 07:54] LABS: AGAP 15; ALKALINE PHOSPHATASE 194 U/L (32-122); AMYLASE 21 U/L (20-200); BUN 9 mg/dL (8-22); CALCIUM 7.6 mg/dL (8.8-10.2); CHLORIDE 100 mmol/L (98-107); COSMO 290; GOT 177 U/L (10-34); GPT 126 U/L (10-44); LIPASE 5 U/L (13-60); MAGNESIUM 1.6 mg/dL (1.5-2.7); POTASSIUM 3.5 mmol/L (3.5-5.1); SODIUM 142 mmol/L (136-145); TCO2 27 mmol/L (25-35); TOTAL PROTEIN 6.3 g/dL (6.3-8.3)
[2016-10-26] MEDS ORDERED: NS 1,000 ML IV SCH (11:47)
[2016-10-26] MEDS: HUMULIN R DOSE (PARKWAY) SUBQ PRN ×2 (12:20→20:46)
--- NOTE | 2016-10-26 12:29 | PROGRESS NOTE ---
DATE: 10/26/2016 SUBJECTIVE: Today Mr. Brooks refers to be doing fine. He has some sore throat and some dry heaves, but denies any vomiting, and he has not had any more diarrhea. OBJECTIVE: Vital Signs: Blood pressure is 177/100, pulse of 70, respirations are 21, temperature is 98.7 degrees. General: Mr. Brooks is a 56-year-old male. He is in bed. He does not seem to be in any remarkable distress. HEENT: Mucosa is pink, but slightly dry. Anicteric and acyanotic. There are some white plaques on the tongue and in the buccal mucosa. Neck: Supple. Chest: Good air entry bilaterally. No crepitations. No rhonchi. Cardiovascular: Regular rate and rhythm. Abdomen: Soft, nontender. Extremities: No pedal edema. Central Nervous System: The patient is awake, alert, and oriented x4. LABORATORY DATA: WBC is 5.65, hemoglobin is 15.7, platelet count of 102,000. Sodium is 142, potassium is 3.5, chloride is 100, bicarbonate is 27. The lactate level was about 6.3. A1c is 7.6. An ultrasound of the abdomen was done, which shows status post cholecystectomy, distended common bile duct up to 1.4. No discrete etiology for the distended CBD other than postcholecystectomy state. DIAGNOSES: 1. Gastroenteritis. 2. Severe dehydration. 3. Intractable nausea and vomiting, improved. 4. History of chronic pancreatitis. 5. Chronic dilation of common bile duct and pancreatic duct noted. 6. Status post cholecystectomy. 7. History of alcohol abuse. 8. Transaminitis. The pattern is suggestive of alcohol-induced. 9. Hyperlactatemia secondary to dehydration and poor perfusion. 10. Diabetes mellitus with hyperglycemia on presentation. It is much better today. 11. Oral candidiasis. PLAN: In general, I think Mr. Brooks is stable. We are going to continue with IV fluids. I would discontinue the antibiotics since I do not find any source of an infection. We will give him some nystatin mouthwash and fluconazole for the oral Eli. We will start him on some clear liquids and advance his diet to a diabetic diet as tolerated. We also are going to transfer him from the ICU to the regular floor, start him on normal saline at 125 mL/hour, and reevaluate him tomorrow. The patient also has significant peripheral diabetic autonomic neuropathy, on gabapentin. cc: Scott Caceres MD
[2016-10-26] MEDS: DIFLUCAN PO SCH (12:30)
[2016-10-26] MEDS: NS 1,000 ML IV SCH ×2 (12:30→19:07)
[2016-10-26] MEDS: MYCOSTATIN SUSP PO SCH ×3 (12:38→20:33)
[2016-10-26] MEDS: NEURONTIN PO SCH ×2 (15:28→22:10)
[2016-10-27] MEDS: NS 1,000 ML IV SCH (03:12)
[2016-10-27 06:05] LABS: MANUAL DIFF NEEDED? NO
[2016-10-27 06:22] LABS: BASO% 0.2 % (0.0-0.8); EOS# 0.15 X1000 (0.0-0.7); EOS% 3.1 % (0.0-10.0); HEMATOCRIT 39.7 % (42.0-52.0); HEMOGLOBIN 14.4 g/dL (14.0-18.0); IMM GRAN# 0.01 X1000 (0.0-0.04); IMM GRAN% 0.2 % (0.0-0.5); LYMPH# 1.59 X1000 (1.2-3.4); LYMPH% 33.2 % (20.5-51.1); MCH 31.4 PG (27-31); MCHC 36.3 g/dL (33-37); MCV 86.5 FL (81-99); MONO# 0.47 X1000 (0.11-0.59); MONO% 9.8 % (1.7-9.3); MPV 10.4 FL (7.4-10.4); NEUT% 53.5 % (42.2-75.2); PLT 100 X1000 (130-400); RBC 4.59 XMIL (4.7-6.1)
[2016-10-27] MEDS: HUMULIN R DOSE (PARKWAY) SUBQ PRN (06:26)
[2016-10-27] MEDS: NEURONTIN PO SCH ×2 (06:27→15:28)
[2016-10-27 06:51] LABS: AGAP 8; ALBUMIN 3.1 g/dL (3.5-5.0); ALKALINE PHOSPHATASE 140 U/L (32-122); BUN 7 mg/dL (8-22); CALCIUM 7.2 mg/dL (8.8-10.2); CHLORIDE 102 mmol/L (98-107); COSMO 282; GOT 50 U/L (10-34); GPT 67 U/L (10-44); POTASSIUM 2.7 mmol/L (3.5-5.1); SODIUM 137 mmol/L (136-145); TCO2 27 mmol/L (25-35); TOTAL PROTEIN 5.3 g/dL (6.3-8.3)
[2016-10-27] MEDS ORDERED: HUMULIN R (PARKWAY) SUBQ PRN (07:24)
[2016-10-27] MEDS ORDERED: FLOMAX PO SCH (09:00)
[2016-10-27] MEDS ORDERED: NOVOLOG MIX 70/30 (PARKWAY) SUBQ SCH (09:00)
[2016-10-27] MEDS ORDERED: KLOR-CON PO ONE (09:01)
[2016-10-27] MEDS: MYCOSTATIN SUSP PO SCH ×2 (09:07→12:40)
[2016-10-27] MEDS: DIFLUCAN PO SCH (09:07)
[2016-10-27 12:01] VITALS: BP 146/80
--- NOTE | 2016-10-27 16:07 | DISCHARGE SUMMARY ---
ADMISSION DATE: 10/25/2016 DISCHARGE DATE: 10/27/2016 PRIMARY CARE PHYSICIAN: Celestino Luu MD. ADMISSION DIAGNOSES: 1. Nausea, vomiting, diarrhea. 2. Elevated liver function tests. 3. Hypomagnesemia. 4. Hypokalemia. DISCHARGE DIAGNOSES: 1. Nausea, vomiting and diarrhea resolved. 2. Gastroenteritis resolved. 3. Severe dehydration resolved. 4. History of chronic pancreatitis. 5. History of alcohol abuse. 6. Diabetes with hyperglycemia. 7. Oral candidiasis. SUMMARY OF FINDINGS: This is a 56-year-old male who presented to the emergency room with complaints of shortness of breath, nausea, vomiting and diarrhea for 2 days that had progressively worsened. On arrival he had a temperature of 99.1 degrees and was saturating 92% on room air. His labs showed a blood sugar of 494, potassium of 3.1, and he had a plasma lactate of 6.3, amylase and lipase were normal. We did an abdomen ultrasound that showed status post cholecystectomy with a distended common bile duct up to 1.4 cm but no discrete etiology for the distended common bile duct was apparent. He was initially admitted to the Intensive Care Unit. He was held NPO initially, given Dilaudid 1 mg IV q.4 p.r.n. We supplemented his low potassium and he was placed on normal saline at 150 mL an hour. His nausea and vomiting improved. It is felt this was most likely gastroenteritis. He was noted to have some oral candidiasis so we placed him on nystatin mouthwash and fluconazole, and this has improved. He was transferred yesterday out of ICU to the floor and is tolerating his diabetic diet so it is felt that he can safely be discharged home. DISCHARGE MEDICATIONS: 1. Prescription for Diflucan 100 mg 1 p.o. daily #5 with no refills. 2. Neurontin 600 mg p.o. t.i.d. 3. NovoLog 70/30 subcutaneous b.i.d. at 15 units. 4. Tamsulosin 0.4 mg p.o. daily. 5. Florinef 0.1 mg p.o. q.a.m. 6. ProAmatine 5 mg p.o. t.i.d. FOLLOWUP: 1. He will need a followup with his primary care physician in 1-2 weeks. Call the office for an appointment. 2. Followup with GI for outpatient workup per his primary care physician. 3. All discharge instructions have been reviewed with the patient and he verbalized understanding. TOTAL TIME SPENT ON DISCHARGE: 35 minutes. Dictated by RYAN Fabian for Scott Caceres MD cc: RYAN Fabian MD P. J. Reddy, MD
[2016-10-27] MEDS ORDERED: CREON PO SCH (17:00)
== END 2016-10-27 16:10 | disposition home or self-care (01) ==
LOC: P.ED 08:12 → P.ICU 12:40 → SUATTDRO 12:40 → P.MEDSURG 10-26 14:59
PROVIDERS: ATTEND Internal Medicine

== ENCOUNTER 2018-05-09 05:09 | Inpatient (IN) ==
--- NOTE | 2018-05-02 10:15 | EKG Report ---
Test Performed on : 05/02/2018 10:02:10 AM Test Reason : PAT Blood Pressure : / mmHG Vent. Rate : 073 BPM Atrial Rate : 073 BPM P-R Int : 180 ms QRS Dur : 088 ms QT Int : 418 ms P-R-T Axes : 065 057 059 degrees QTc Int : 460 ms Normal sinus rhythm. Normal ECG When compared with ECG of 04-MAY-2017 08:31, No significant change was found Confirmed by Gema MARC, Kaushik Spain ([id number]) on 05/02/2018 6:26:15 PM
[2018-05-02 11:40] LABS: URINE SOURCE CLEAN CATCH
[2018-05-02 11:53] LABS: BASO# 0.03 X1000 (0.0-0.2); BASO% 0.6 % (0.0-0.8); EOS# 0.13 X1000 (0.0-0.7); EOS% 2.7 % (0.0-10.0); HEMATOCRIT 38.3 % (42.0-52.0); HEMOGLOBIN 13.6 g/dL (14.0-18.0); LYMPH% 31.1 % (20.5-51.1); MCH 31.9 PG (27-31); MCHC 35.5 g/dL (33-37); MCV 89.9 FL (81-99); MONO# 0.36 X1000 (0.11-0.59); MONO% 7.5 % (1.7-9.3); NEUT% 58.1 % (42.2-75.2); PLT 179 X1000 (130-400); RBC 4.26 XMIL (4.7-6.1); WBC 4.82 X1000 (4.8-10.8)
[2018-05-02 11:54] LABS: BILIRUBIN URINE NEGATIVE (NEGATIVE); BLOOD URINE NEGATIVE (NEGATIVE); COLOR YELLOW; GLUCOSE URINE >1000 mg/dL (NEGATIVE); KETONE URINE NEGATIVE (NEGATIVE); LEUKOCYTES URINE NEGATIVE (NEGATIVE); NITRITE URINE NEGATIVE (NEGATIVE); PH URINE 6.5; PROTEIN URINE NEGATIVE (NEGATIVE); SP GRAVITY URINE 1.022; TURBIDITY URINE CLEAR (CLEAR); UROBILINOGEN URINE NORMAL (NORMAL)
[2018-05-02 11:55] LABS: UR EPITHELIAL CELLS <10 /HPF (<10); URINE BACTERIA NEGATIVE /HPF; URINE RBC <10 /HPF (<10); URINE WBC <10 /HPF (<10)
[2018-05-02 11:59] LABS: INR 1.36; PROTIME 17.8 Seconds (11.0-16.0)
[2018-05-02 12:17] LABS: AGAP 9; BUN 5 mg/dL (8-22); CALCIUM 8.8 mg/dL (8.8-10.2); CHLORIDE 99 mmol/L (98-107); COSMO 290; CREATININE 0.7 mg/dL (0.7-1.2); ESTIMATED GFR > 60; GLUCOSE 347 mg/dL (70-104); POTASSIUM 4.9 mmol/L (3.5-5.1); SODIUM 140 mmol/L (136-145); TCO2 32 mmol/L (25-35)
[2018-05-09] MEDS ORDERED: COLACE ONE (09:05)
[2018-05-09] MEDS ORDERED: REGLAN ONE (09:06)
[2018-05-09] MEDS ORDERED: KEFZOL 2 GM/D5W 2 GM/50 ML IVPB ONE (09:06)
[2018-05-09] MEDS ORDERED: PEPCID ONE (09:06)
[2018-05-09] MEDS ORDERED: LR 1,000 ML ONE (09:06)
[2018-05-09] MEDS ORDERED: LYRICA ONE (09:06)
[2018-05-09] MEDS ORDERED: CELEBREX ONE (09:06)
[2018-05-09] MEDS ORDERED: VALIUM ONE (09:19)
[2018-05-09] MEDS ORDERED: ROBINUL ONE (09:51)
[2018-05-09] MEDS ORDERED: FENTANYL ONE (09:51)
[2018-05-09] MEDS ORDERED: DIPRIVAN 1% ONE (09:51)
[2018-05-09] MEDS ORDERED: XYLOCAINE-MPF 2% ONE (09:51)
[2018-05-09] MEDS ORDERED: VERSED ONE (09:53)
[2018-05-09] MEDS ORDERED: ZOFRAN ONE (09:55)
[2018-05-09] MEDS ORDERED: DURAMORPH ONE (11:23)
[2018-05-09] MEDS ORDERED: VANCOMYCIN ONE (11:23)
[2018-05-09] MEDS ORDERED: TORADOL ONE (11:23)
[2018-05-09] MEDS ORDERED: EXPAREL 1.3% ONE (11:24)
[2018-05-09] MEDS ORDERED: SENSORCAINE-MPF 0.5%/EPI 1:200,000 ONE (11:24)
[2018-05-09] MEDS ORDERED: SODIUM CHLORIDE 0.9% ONE (11:24)
[2018-05-09] MEDS ORDERED: NEOSPORIN G.U. IRRIGANT ONE (11:24)
[2018-05-09] MEDS ORDERED: CYKLOKAPRON 1,000 MG/NS 1,000 MG/100 ML IVPB ONE ×2 (11:24→11:25)
[2018-05-09] MEDS ORDERED: SODIUM CHLORIDE 0.9% 10 ML ONE ×2 (11:29→12:55)
[2018-05-09] MEDS ORDERED: EPHEDRINE ONE (11:52)
[2018-05-09] MEDS ORDERED: OFIRMEV 1000 MG/ISOTONIC SOLN 1,000 MG/100 ML BOTTLE ONE (12:12)
[2018-05-09] MEDS ORDERED: MORPHINE ONE (12:55)
[2018-05-09] MEDS ORDERED: HESPAN 500 ML ONE (13:25)
[2018-05-09] MEDS ORDERED: NS 1,000 ML ONE (14:04)
[2018-05-09 14:13] LABS: URINE SOURCE CATH
--- NOTE | 2018-05-09 14:16 | OPERATIVE NOTE ---
PROCEDURE DATE: 05/09/2018 PREOPERATIVE DIAGNOSIS: Degenerative joint disease, left hip. POSTOPERATIVE DIAGNOSIS: Degenerative joint disease, left hip. PROCEDURE PERFORMED: Left total hip replacement, anterior. SURGEON: Brenda Naranjo MD. PROJECT CONTROLS SPECIALIST: RYAN Lopez. Mr. Mayers was necessary for proper retraction and manipulation during the case. ANESTHESIA: General. COMPLICATION: None. PROCEDURE IN DETAIL: This 58-year-old male presents for surgical anterior left hip replacement. Risks, benefits, and no guarantees were discussed and he is willing to proceed. He was taken the operating room and satisfactory anesthesia obtained. The patient was placed on the [place] table and the left hip prepped and draped in usual sterile fashion. Care was taken to avoid any pressure on the genitalia or bony prominences. After ensuring a proper time-out, an anterior approach to the left hip was undertaken after prepped and draped. An incision starting 1 cm lateral and distal to the anterior superior iliac spine and carried 10 cm down the anterolateral thigh. Dissection was carried down through the skin and subcutaneous fat to the fascia of the tensor fascia ashlee. This was split in line with the incision. Blunt dissection along the inner membrane to the tensor fascia ashlee was undertaken down to the anterior hip capsule. Cobra retractors placed over the superior and inferior aspect of the femoral neck and a capsulotomy incision made under direct vision. Exposure of the joint was then obtained. Afterwards, the C-arm was used to make an AP pelvis for leg length referencing after the replacement. An osteotomy was made roughly 8-10 mm above the lesser trochanter and the femoral head removed. A small Cobra retractor was carefully placed directly on the anterior acetabular bone to avoid any injury to the femoral nerve and retract the anterior tissues for reaming. Sequential reaming up to a 59 reamer was undertaken. A DePuy [place] 60 outer diameter JIMENEZ coated cup was impacted in the acetabulum in roughly 15 to 20 degrees of anteversion and 45 degrees of abduction under fluoroscopic guidance. This had secure press-fit fixation. An additional 25 length screw was placed in the 12 o'clock position of the cup for additional security, followed by 36 mm inner diameter 0 degree polyethylene liner. This was impacted into the cup and the liner cup interface and cup bone interface checked and noted to be stable. Traction was then released off the leg and using the [place] table, the hip extended and externally rotated to facilitate broaching of the proximal femur. Sequential broaching with the Sponsifyuy Actis broach was undertaken up to a size 7 stem, which had good axial and rotational stability. High offset geometry matched the other side and produced good stability with a +5 neck length 36 mm ball. No instability was noted with this trial. The trial stem was removed and an Actis size 7 high offset stem with a 36 mm ceramic +5 neck length ball was impacted in the proximal femur with secure fixation. The hip was reduced and the C-arm used to make accurate reduction pictures, as well as pictures of the implant. The hip was externally rotated to roughly 70 degrees and extended to 50-70 degrees without any anterior dislocation. The wound was copiously irrigated with irrigant. A Hemovac drain was placed. The joint capsule and skin was injected with Exparel for pain management. The fascia of the tensor fascia was closed with a running V-Loc suture, the subcutaneous with 2-0 Vicryl, and the skin with skin marlo. Sterile dressings completed the closure and the patient was recovered from anesthesia and transferred to the recovery room in stable condition. No intraoperative complications were noted. Instrument count and sponge count was correct at the time of closure. cc: Jimmy Naranjo MD
[2018-05-09 14:22] LABS: BILIRUBIN URINE NEGATIVE (NEGATIVE); BLOOD URINE NEGATIVE (NEGATIVE); COLOR YELLOW; GLUCOSE URINE NEGATIVE (NEGATIVE); KETONE URINE NEGATIVE (NEGATIVE); LEUKOCYTES URINE NEGATIVE (NEGATIVE); NITRITE URINE NEGATIVE (NEGATIVE); PROTEIN URINE NEGATIVE (NEGATIVE); TURBIDITY URINE CLEAR (CLEAR); UROBILINOGEN URINE NORMAL (NORMAL)
[2018-05-09 14:24] LABS: UR EPITHELIAL CELLS <10 /HPF (<10); URINE BACTERIA NEGATIVE /HPF; URINE RBC <10 /HPF (<10); URINE WBC <10 /HPF (<10)
[2018-05-09] MEDS: MORPHINE ONE ×3 (14:33→14:44)
[2018-05-09] MEDS ORDERED: OXY IR ONE (14:56)
--- NOTE | 2018-05-09 16:46 | PROGRESS NOTE ---
DATE: 05/09/2018 Mr. Brooks seen status post anterior hip replacement. At the present time, he is afebrile with stable vital signs. His bandage is clean and dry. He is motor and sensory intact with good knee extension and flexion as well as toe and ankle dorsi and plantar flexion. He has no complaints present time. Vital signs are stable. There is no signs of postop complication at the present. cc: Jimmy Naranjo MD
[2018-05-09] MEDS ORDERED: AMBIEN PO PRN (17:00)
[2018-05-09] MEDS ORDERED: MORPHINE IV PRN ×3 (17:00)
[2018-05-09] MEDS ORDERED: ZOFRAN ODT PO PRN (17:00)
[2018-05-09] MEDS ORDERED: ZOFRAN IV PRN (17:00)
[2018-05-09] MEDS ORDERED: OXY IR PO PRN (17:00)
[2018-05-09] MEDS ORDERED: CYKLOKAPRON 1,000 MG in NS 100 ML IV ONE (18:00)
[2018-05-09] MEDS ORDERED: NOVOLOG MIX 70/30 SUBQ SCH (18:30)
[2018-05-09] MEDS: ULTRAM PO SCH ×2 (18:37→23:00)
[2018-05-09] MEDS: KEFZOL 2 GM/D5W 2 GM/50 ML IVPB IV SCH (20:36)
[2018-05-09] MEDS: NS 1,000 ML IV SCH (20:37)
[2018-05-09] MEDS: CELEBREX PO SCH (20:40)
[2018-05-09] MEDS: OXY IR PO PRN (20:40)
[2018-05-09] MEDS: NEURONTIN PO SCH (20:41)
[2018-05-09] MEDS: PERIDEX MT SCH (20:41)
[2018-05-09] MEDS: COLACE PO SCH (20:41)
[2018-05-10] MEDS: OXY IR PO PRN ×2 (01:54→11:20)
[2018-05-10] MEDS: KEFZOL 2 GM/D5W 2 GM/50 ML IVPB IV SCH (03:49)
[2018-05-10] MEDS: NS 1,000 ML IV SCH ×2 (03:49→08:20)
[2018-05-10 05:32] LABS: HEMATOCRIT 24.2 % (42.0-52.0); HEMOGLOBIN 8.1 g/dL (14.0-18.0)
[2018-05-10] MEDS: ULTRAM PO SCH ×3 (05:52→17:42)
[2018-05-10 06:33] LABS: AGAP 13; BUN 12 mg/dL (8-22); CHLORIDE 97 mmol/L (98-107); COSMO 283; ESTIMATED GFR > 60; GLUCOSE 371 mg/dL (70-104); POTASSIUM 4.8 mmol/L (3.5-5.1); SODIUM 134 mmol/L (136-145); TCO2 24 mmol/L (25-35)
[2018-05-10 07:11] LABS: CALCIUM 6.3 mg/dL (8.8-10.2)
[2018-05-10] MEDS: NOVOLOG MIX 70/30 SUBQ SCH ×3 (07:36→17:46)
--- NOTE | 2018-05-10 07:47 | PROGRESS NOTE ---
DATE: 05/10/2018 Mr. Brooks is seen postop day 1 status post total hip replacement. He is afebrile with stable vital signs at the present time. He is to be mobilized today with physical therapy. He did have a drop in his hematocrit down to 24. Currently, his drain output has decreased. We will plan on discontinuing his drain and mobilizing him today. He is motor and sensory intact with no signs of infection or DVT. We will discharge him home on home medicine as well as home therapy. I will see him back in roughly 2 weeks time for followup. He can take an aspirin once a day for DVT prophylaxis. He is to use DAKOTA hose for mechanical prophylaxis. He is to return in the interim for any worsening signs or symptoms. cc: Jimmy Naranjo MD
[2018-05-10] MEDS: COLACE PO SCH (08:10)
[2018-05-10] MEDS: NEURONTIN PO SCH ×2 (08:10→14:20)
[2018-05-10] MEDS: CELEBREX PO SCH (08:10)
[2018-05-10] MEDS: PERIDEX MT SCH (08:11)
[2018-05-10] MEDS ORDERED: ASPIRIN PO SCH (09:00)
[2018-05-10] MEDS ORDERED: PEPCID PO SCH (09:00)
[2018-05-10] MEDS ORDERED: NEURONTIN PO SCH (09:00)
[2018-05-10 15:57] VITALS: BP 125/72
== END 2018-05-10 17:49 | disposition home or self-care (01) | DRG 470 ==
LOC: SURHOLD 05:09 → 4N 11:52
PROVIDERS: ADMIT Orthopaedic Surgery Adult Reconstructive Orthopaedic Surgery; ATTEND Orthopaedic Surgery Adult Reconstructive Orthopaedic Surgery
CPT/HCPCS: 76000; 80048; 81001; 82948; 85014; 85018; 85025; 85610; 85730; 86850; 86900; 86901; 88304; 88311; 93005; 93010; 94761; 94799; 97116; 97162; 97530; A9270; C9290; J0131; J0690; J1885; J2250; J2270; J2274; J2275; J2405; J3010; J3370; J7030; J7120; Q9974; XXXXX

== ENCOUNTER 2018-06-27 07:41 | Inpatient (IN) ==
--- NOTE | 2018-06-27 07:56 | EKG Report ---
Test Performed on : 06/27/2018 07:46:01 AM Test Reason : SOB Blood Pressure : / mmHG Vent. Rate : 081 BPM Atrial Rate : 081 BPM P-R Int : 174 ms QRS Dur : 086 ms QT Int : 404 ms P-R-T Axes : 052 049 046 degrees QTc Int : 469 ms Normal sinus rhythm. Normal ECG When compared with ECG of 02-MAY-2018 10:02, No significant change was found Unconfirmed Result
[2018-06-27 08:17] LABS: URINE SOURCE CLEAN CATCH
[2018-06-27 08:20] LABS: BASO# 0.02 X1000 (0.0-0.2); BASO% 0.6 % (0.0-0.8); EOS# 0.09 X1000 (0.0-0.7); EOS% 2.8 % (0.0-10.0); HEMATOCRIT 34.3 % (42.0-52.0); HEMOGLOBIN 11.4 g/dL (14.0-18.0); LYMPH# 1.15 X1000 (1.2-3.4); LYMPH% 36.3 % (20.5-51.1); MCH 26.3 PG (27-31); MCHC 33.2 g/dL (33-37); MONO% 9.5 % (1.7-9.3); MPV 10.1 FL (7.4-10.4); NEUT# 1.61 X1000 (1.4-6.5); NEUT% 50.8 % (42.2-75.2); PLT 128 X1000 (130-400); RBC 4.34 XMIL (4.7-6.1); RDW 14.8 % (11.5-14.5); WBC 3.17 X1000 (4.8-10.8)
[2018-06-27 08:25] LABS: ALLEN TEST YES; BE 5.3 mmoll (-3.0-3.0); BLOOD TYPE ARTERIAL; METHB 0.9 % (0.0-1.5); O2(CT) 15.2 mL/dL (15.0-23.0); O2HB 94.4 % (95.0-99.0); PCO2(98.6) 43 mmHg (35-45); PO2(98.6) 70 mmHg (60-100); SAMPLE BLOOD; SAO2 97.5 % (95.0-100.0); THB 11.4 g/dL (11.5-17.4); pH(98.6) 7.45 (7.35-7.45)
[2018-06-27 08:28] LABS: ACETONE SERUM NEGATIVE (NEGATIVE)
[2018-06-27 08:28] LABS: BILIRUBIN URINE NEGATIVE (NEGATIVE); BLOOD URINE NEGATIVE (NEGATIVE); GLUCOSE URINE >1000 mg/dL (NEGATIVE); KETONE URINE NEGATIVE (NEGATIVE); LEUKOCYTES URINE NEGATIVE (NEGATIVE); NITRITE URINE NEGATIVE (NEGATIVE); PH URINE 6.5; PROTEIN URINE NEGATIVE (NEGATIVE); SP GRAVITY URINE 1.028; TURBIDITY URINE CLEAR (CLEAR); UROBILINOGEN URINE NORMAL (NORMAL)
[2018-06-27 08:33] LABS: UR EPITHELIAL CELLS <10 /HPF (<10); URINE RBC <10 /HPF (<10); URINE WBC <10 /HPF (<10)
[2018-06-27 08:34] LABS: COLOR STRAW; URINE BACTERIA NEGATIVE /HPF
[2018-06-27 08:40] LABS: AGAP 15; ALB/GLOB RATIO 1.3; ALBUMIN 3.4 g/dL (3.5-5.0); ALKALINE PHOSPHATASE 312 U/L (32-122); BUN 2 mg/dL (8-22); CALCIUM 7.7 mg/dL (8.8-10.2); CHLORIDE 88 mmol/L (98-107); COSMO 285; CREATININE 0.8 mg/dL (0.7-1.2); ESTIMATED GFR > 60; GOT 73 U/L (10-34); GPT 119 U/L (10-44); POTASSIUM 3.7 mmol/L (3.5-5.1); SODIUM 131 mmol/L (136-145); TCO2 28 mmol/L (25-35); TOTAL BILIRUBIN 0.61 mg/dL (0.20-1.00); TOTAL PROTEIN 6.1 g/dL (6.3-8.3)
[2018-06-27 08:41] LABS: GLUCOSE 576 mg/dL (70-104)
[2018-06-27] MEDS ORDERED: HUMULIN R IV ONE (08:42)
[2018-06-27] MEDS ORDERED: NS 1,000 ML IV ONE (08:43)
--- NOTE | 2018-06-27 09:14 | Diag Imaging Result Doc PS360 ---
EXAM: CHEST-1 VIEW INDICATION: cough TECHNIQUE: One view COMPARISON: 10/25/2016 FINDINGS: The lungs are grossly clear. There is no discrete pleural fluid collection or pneumothorax. The cardiomediastinal silhouette and central vasculature are grossly unremarkable. IMPRESSION: No evidence of acute pathology by plain radiograph. Electronically signed by Jimmy Acosta 06/27/2018 9:12 AM
--- NOTE | 2018-06-27 11:03 | PROVIDER DOCUMENTATION ---
This chart was entered by Kelley Stokes Scribe, acting as scribe for Clemente Oh MD. HPI-General Adult - General Chief Complaint: High Blood Sugar Stated Complaint: N/V, weakness Time Seen by Provider: 06/27/18 07:51 Source: patient, EMS Allergies/Adverse Reactions: Patient Allergies Allergy/AdvReac Type Severity Reaction Status Date / Time No Known Allergies Allergy Verified 05/09/18 12:41 Home Medications: Home Medication List Medication Instructions Recorded Confirmed Last Taken Type Gabapentin [Neurontin] 600 mg PO TID #0 tablet 01/20/15 06/27/18 05/09/18 06:30 Rx Insulin Novolog 70/30 [Novolog Mix 1 dose SUBQ DIRECTED 05/05/17 06/27/18 21:00 History 7030] - History of Present Illness -Gen Adult Nature of Presenting Problems: 58 yom presents to the ed via ems with elevated BGL reading high on meter. pt c/ o n/v/d x3 sob weakness. pt has been drinking Gatorade but not eating well since onset Location of Pain/Injury: reports: abdomen Pain Radiation: reports: no radiation Quality of Pain: reports: cramping Severity: reports: mild Onset/Duration: reports: 5 days ago Timing: reports: intermittent Context/Activities at Onset: reports: light activity Modifying Factors: improves with: nothing Associated Symptoms: reports: diarrhea, fatigue, malaise, nausea, shortness of breath, vomiting (x3), weakness. denies: back/neck pain, chest pain, cough, diaphoresis, dizziness, syncope, trouble walking Similar Symptoms Previously?: Yes Recently seen or treated by another doctor?: No - Diabetes Related Context Context: reports: high blood sugar (read high) Review of Systems - Adult - REVIEW OF SYSTEMS - ADULT Constitutional: reports: fatique. denies: chills, fever Eyes: reports: no symptoms reported Ears, Nose, Mouth & Throat: reports: no symptoms reported Cardiovascular: denies: chest pain, palpitations Respiratory: denies: cough, shortness of breath, wheezing Gastrointestinal: reports: see HPI, abdominal pain, diarrhea, nausea, poor appetite, vomiting Genitourinary: reports: no symptoms reported Musculoskeletal: reports: see HPI, other (weakness). denies: back pain, neck pain Integumentary: reports: no symptoms reported Neurological: denies: dizziness/vertigo, headache/migraines Psychiatric: reports: no symptoms reported Endocrine: reports: no symptoms reported Hematologic/Lymphatic: reports: no symptoms reported Allergic/Immunologic: reports: no symptoms reported All Other Systems: Reviewed and Negative Past History - Adult - PAST MEDICAL HISTORY-ADULT Review of Records: reports: Old Records Reviewed, Nursing Assessment Review, Medications Reviewed, Social history reviewed & non-contributory. Major Childhood Illnesses: reports: denies history Cardiovascular: reports: other (orthostatic hypotension) Respiratory: reports: denies history Gastrointestinal: reports: denies history Obstetrical/Gynecological: reports: denies history Genitourinary: reports: denies history Musculoskeletal: reports: denies history Neurological: reports: Seizures/Epilepsy Psychiatric: reports: depression Endocrine/Immune: reports: Diabetes Other Conditions: reports: denies history - PRIOR SURGERIES/PROCEDURES Surgical/Procedure History: reports: hernia repair, other (neuropathy; dysautonomia) - IMMUNIZATION STATUS Childhood Immunizations: See Nurse Assessment Flu Vaccine: See Nurse Assessment - FAMILY HISTORY Family History: diabetes - SOCIAL HISTORY Smoking: denies Substance Use: none presently/history of abuse Living Situation: family Physical Exam-General - PHYSICAL EXAM-ADULT Initial Vital Signs Reviewed: Yes - CONSTITUTIONAL General Appearance: alert, mild distress - EYES Eyes: PERRL/EOMI, pink conjunctivae - HEAD, EARS, NOSE, MOUTH & THROAT HENMT: normocephalic/atraumatic, moist mucous membranes - NECK Neck: non-tender, full range of motion, supple, normal inspection - RESPIRATORY Respiratory: chest non-tender, lungs clear, normal breath sounds - CARDIOVASCULAR Cardiovascular: normal peripheral pulses, regular rate, rhythm - GASTROINTESTINAL (ABDOMEN) Abdominal Exam: normal bowel sounds, non tender, soft - LYMPHATIC Lymphatic: no adenopathy - MUSCULOSKELETAL Back Exam: normal inspection, no CVA tenderness, no vertebral tenderness Extremity: normal range of motion, non-tender, normal gait, normal inspection - SKIN Integumentary: normal color, normal turgor, warm/dry - NEUROLOGIC Neurologic: grossly normal, no motor/sensory deficits - PSYCHIATRIC Psych/Mental Status: normal mood/affect, normal thought content, normal thought process, oriented x 3 Progress - PLAN OF CARE/RESULTS Progress/Plan/Lab Results: Vital Signs - 8 hr 06/27/18 07:41 06/27/18 07:44 Temperature 97.9 F Pulse Rate 82 82 Respiratory Rate 13 22 Blood Pressure 156/94 156/94 O2 Sat by Pulse Oximetry 99 95 Laboratory Results - last 24 hr 06/27/18 06/27/18 06/27/18 07:48 07:55 07:55 WBC 3.17 L RBC 4.34 L Hgb 11.4 L Hct 34.3 L MCV 79.0 L MCH 26.3 L MCHC 33.2 RDW Std Deviation 14.8 H Plt Count 128 L MPV 10.1 Immature Gran % (Auto) 0.0 Neut % (Auto) 50.8 Lymph % (Auto) 36.3 [place] % (Auto) 9.5 H Eos % (Auto) 2.8 Baso % (Auto) 0.6 Immature Gran # (Auto) 0.00 Neut # (Auto) 1.61 Lymph # (Auto) 1.15 L [place] # (Auto) 0.30 Eos # (Auto) 0.09 Baso # (Auto) 0.02 Sodium 131 L Potassium 3.7 Chloride 88 L Carbon Dioxide 28 Anion Gap 15 BUN 2 L Creatinine 0.8 Estimated GFR/1.73 m2 > 60 BUN/Creatinine Ratio 3 Glucose 576 H* POC Glucose 500 H D Calculated Osmolality 285 Calcium 7.7 L Total Bilirubin 0.61 AST 73 H ALT 119 H Alkaline Phosphatase 312 H Total Protein 6.1 L Albumin 3.4 L Globulin 2.7 Albumin/Globulin Ratio 1.3 Urine Source Urine Color Urine Turbidity Urine pH Ur Specific Fries Urine Protein Ur Glucose (Stick) Ur Ketones (Stick) Urine Blood Urine Nitrite Urine Bilirubin Urobilinogen Dipstick Urine Leukocytes Urine WBC (Auto) Urine RBC (Auto) U Epithel Cells (Auto) Urine Bacteria (Auto) Acetone Level NEGATIVE 06/27/18 08:10 WBC RBC Hgb Hct MCV MCH MCHC RDW Std Deviation Plt Count MPV Immature Gran % (Auto) Neut % (Auto) Lymph % (Auto) [place] % (Auto) Eos % (Auto) Baso % (Auto) Immature Gran # (Auto) Neut # (Auto) Lymph # (Auto) [place] # (Auto) Eos # (Auto) Baso # (Auto) Sodium Potassium Chloride Carbon Dioxide Anion Gap BUN Creatinine Estimated GFR/1.73 m2 BUN/Creatinine Ratio Glucose POC Glucose Calculated Osmolality Calcium Total Bilirubin AST ALT Alkaline Phosphatase Total Protein Albumin Globulin Albumin/Globulin Ratio Urine Source CLEAN CATCH Urine Color STRAW Urine Turbidity CLEAR Urine pH 6.5 Ur Specific [place] 1.028 Urine Protein NEGATIVE Ur Glucose (Stick) >1000 A Ur Ketones (Stick) NEGATIVE Urine Blood NEGATIVE Urine Nitrite NEGATIVE Urine Bilirubin NEGATIVE Urobilinogen Dipstick NORMAL Urine Leukocytes NEGATIVE Urine WBC (Auto) <10 Urine RBC (Auto) <10 U Epithel Cells (Auto) <10 Urine Bacteria (Auto) NEGATIVE Acetone Level Orders Category Date Time Status cxr [CHEST-1 VIEW] [RAD] Stat Exams 06/27/18 08:48 Completed ABG [RESP] Routine Lab 06/27/18 07:53 Ordered CBC WITH ELECTRONIC DIFF [HEME] Stat Lab 06/27/18 07:55 Completed COMPREHENSIVE METABOLIC PANEL [CHEM] Stat Lab 06/27/18 07:55 Completed Ketone [ACETONE SERUM] [CHEM] Stat Lab 06/27/18 07:55 Completed UA [URINALYSIS] [URINALYSIS] Stat Lab 06/27/18 08:10 Completed 0.9% Sodium Chloride Inj [Ns] 1,000 ml Med 06/27/18 08:43 Discontinued IV 999 mls/hr Insulin Human Regular [Humulin R] Med 06/27/18 08:42 Discontinued 10 unit IV NOW ONE EKG [EKG] Stat Ther 06/27/18 07:53 Draft Result Diagrams: 06/27/18 07:55 06/27/18 07:55 - EKG 1 Time of EKG reading by physician:: 07:46 EKG Read and Signed by:: Clemente Oh EKG Interpretation (*Must complete 3 of following elements*): Normal Rate: 81 Rhythm: nsr [place]: normal QRS: normal [place] Interval: normal ST Wave: normal - XRAY 1 XRAY: Bilateral XRAY Study: Chest Impression: See EMR Report (EXAM: CHEST-1 VIEW INDICATION: cough TECHNIQUE: One view COMPARISON: 10/25/2016 FINDINGS: The lungs are grossly clear. There is no discrete pleural fluid collection or pneumothorax. The cardiomediastinal silhouette and central vasculature are grossly unremarkable. IMPRESSION: No evidence of acute pathology by plain radiograph. Electronically signed by Jimmy Acosta 06/27/2018 9:12 AM 06/27/18911 Interpreting Physician: Jimmy Acosta MD Dictated Date/Time: 06/27/18911 cc: Clemente Oh MD; Alin Enamorado MD) - CONSULTS/PCP/HOSPITALIST Notification #1 *Consult/PCP/Hospitalist*: dr enamorado pcp Time Discussed: 11:58 Consult Disposition: Admit Departure - Departure Date of Disposition Decision: 06/27/18 Time of Disposition Decision: 12:14 DIAGNOSIS: Hyperglycemia, Hypocalcemia, Gastroenteritis Disposition: ADMITTED INPATIENT 09 Certified Medical Emergency: Emergent Condition: Fair Referrals and Follow-Ups: Alin Enamorado MD [Primary Care Provider] - - Critical Care Note This patient required my direct & personal management of CC.: No Attestation - Physician/ VERONICA Attestation Patient care was provided by Advanced Practice Provider:: No The physician spent face to face time with patient:: Yes Advanced Practice Provider documentation review:: Supervising physician onsite and consulted in the evaluation and care of this patient. The physician did have a face to face encounter with the patient. This chart was documented by the indicated scribe, (Kelley Stokes Scribe) and accurately reflects the services I performed and decisions made by me, Clemente Oh MD, as attested by the provider's signature.
[2018-06-27 11:24] LABS: MODALITY ROOM AIR
[2018-06-27] MEDS ORDERED: HUMULIN R SUBQ SCH (16:00)
[2018-06-27] MEDS ORDERED: NS 1,000 ML IV SCH (16:15)
[2018-06-27] MEDS ORDERED: NS 1,000 ML ONE (16:45)
[2018-06-27] MEDS ORDERED: NOVOLOG MIX 70/30 SUBQ SCH (18:15)
[2018-06-27] MEDS: NS 1,000 ML IV SCH (20:16)
[2018-06-27] MEDS: SODIUM CHLORIDE 0.9% INJ SCH (20:16)
[2018-06-27] MEDS: PROTONIX IV SCH (20:16)
[2018-06-27] MEDS: LOVENOX SUBQ SCH (20:16)
[2018-06-27] MEDS: ZOFRAN IV PRN ×2 (20:16→23:35)
[2018-06-27] MEDS: HUMALOG SUBQ SCH (21:00)
[2018-06-27] MEDS: NEURONTIN PO SCH (21:02)
--- NOTE | 2018-06-27 22:13 | HISTORY AND PHYSICAL ---
CHIEF COMPLAINT: 1. Nausea, upper abdominal discomfort. 2. Elevated blood sugar. HISTORY OF PRESENT ILLNESS: He is a 58-year-old white male who came to the ER with high blood pressure, nausea, vomiting and weakness. Apparently he was not able to take his medicines. He has tried to drink some Gatorade. He could not take the insulin. Blood sugars were 600. Basically admitted to the hospital with impending hyperglycemic dehydration. The patient was seen in my office last year for an annual exam. Recently Dr. Naranjo did the left hip arthroplasty anteriorly. The patient denies any other symptoms like chest pain. As a result, a hospital admission was warranted after workup in the emergency room. PAST MEDICAL HISTORY: 1. Chest pain. Cardiac perfusion scan was negative in 12/2014. 2. Type 2 diabetes. 3. Diabetic neuropathy. 4. Withdrawal seizures from alcohol. 5. Fracture of the nasal bones. 6. Orthostatic hypotension, resolved. 7. Osteoarthritis. PAST SURGICAL HISTORY: Myringotomy with both tubes, cholecystectomy, inguinal hernia repair on the left side, right hip replacement in 04/2017, left hip replacement 04/2018, left knee arthroscopy. MEDICATIONS: Current medications are gabapentin 600 t.i.d.; insulin NovoLog 70/ 30, 50 units subcutaneous b.i.d. ALLERGIES: Not known. SOCIAL HISTORY: He is . No smoking. Denies any alcohol since 2014. FAMILY HISTORY: Father at 78 due to Alzheimer disease. Mother from lung cancer. Brother had colon cancer. REVIEW OF SYSTEMS: HEENT: No headache. No vision problem. No earache. No sore throat. Neck: He has no goiter. No lymphadenopathy. No bruit. Cardiopulmonary: No chest pain, shortness of breath, PND or orthopnea. GI: Nausea, retching. Weakness and leg pains in both legs. Neurologic: No focal symptoms, weakness or seizures. PHYSICAL EXAMINATION: VITAL SIGNS: Temperature is 98.6, pulse is 85, blood pressure is 156/77. Five feet 10 inches, 206 pounds. HEENT: Atraumatic, normocephalic. Pupils equal and reactive to light. Dry mucous membranes. NECK: Supple. No lymphadenopathy. No goiter. CHEST: Bilateral air entry. HEART: Sounds are regular. No murmurs. ABDOMEN: Belly is soft, nontender. Good bowel sounds. SKIN: Bilateral scars present over the hips. EXTREMITIES: Pulses are palpable. NEUROLOGIC: Sensory exam is decreased in the feet. No neurological deficits noted. LABORATORY DATA: White cell count 3.1, hematocrit 34, platelets 128,000. ABG pH is 7.45, pCO2 is 43, pO2 is 70, 21%. SMA 7: Sodium 131, potassium 3.7, chloride 88, BUN 2, creatinine 0.8, glucose 576,calcium 7.7. LFTs were high. Urinalysis is clear. Acetone is negative. ASSESSMENT AND PLAN: 1. A 58-year-old white male admitted to the hospital with hyperglycemic dehydration with nausea. Plan (1) intravenous fluids; (2) intravenous Zofran; (3) intravenous Protonix ; (4) insulin sliding scale with insulin coverage. Follow up on labs in the morning. 2. Reconcile home medicines. 3. Status post bilateral hip replacement, stable. 4. Dysautonomia, stable. 5. History of alcohol use. Elevated liver function tests status post cholecystectomy. Follow up on the liver function tests in the morning. Will discuss with the patient about his alcohol use. cc: Marques Luu MD MTDD
[2018-06-28] MEDS: ZOFRAN IV PRN (04:13)
[2018-06-28] MEDS: NS 1,000 ML IV SCH (06:19)
[2018-06-28] MEDS: HUMALOG SUBQ SCH ×4 (06:19→21:56)
[2018-06-28 07:22] LABS: BASO# 0.01 X1000 (0.0-0.2); BASO% 0.3 % (0.0-0.8); EOS# 0.13 X1000 (0.0-0.7); EOS% 3.4 % (0.0-10.0); HEMATOCRIT 31.9 % (42.0-52.0); HEMOGLOBIN 10.4 g/dL (14.0-18.0); LYMPH# 1.18 X1000 (1.2-3.4); LYMPH% 31.1 % (20.5-51.1); MCH 26.1 PG (27-31); MCHC 32.6 g/dL (33-37); MCV 80.2 FL (81-99); MONO# 0.21 X1000 (0.11-0.59); MONO% 5.5 % (1.7-9.3); MPV 10.4 FL (7.4-10.4); NEUT# 2.26 X1000 (1.4-6.5); NEUT% 59.7 % (42.2-75.2); PLT 115 X1000 (130-400); RBC 3.98 XMIL (4.7-6.1); WBC 3.79 X1000 (4.8-10.8)
[2018-06-28 07:47] LABS: AGAP 13; ALB/GLOB RATIO 1.4; ALKALINE PHOSPHATASE 243 U/L (32-122); BUN 4 mg/dL (8-22); CALCIUM 7.3 mg/dL (8.8-10.2); CHLORIDE 97 mmol/L (98-107); COSMO 282; CREATININE 0.8 mg/dL (0.7-1.2); ESTIMATED GFR > 60; GLUCOSE 341 mg/dL (70-104); GOT 38 U/L (10-34); GPT 72 U/L (10-44); POTASSIUM 3.3 mmol/L (3.5-5.1); SODIUM 136 mmol/L (136-145); TCO2 26 mmol/L (25-35); TOTAL BILIRUBIN 1.06 mg/dL (0.20-1.00); TOTAL PROTEIN 5.2 g/dL (6.3-8.3)
[2018-06-28] MEDS ORDERED: THIAMINE 100 MG in NS 50 ML IV ONE (09:00)
[2018-06-28] MEDS ORDERED: TYLENOL PO PRN (09:26)
[2018-06-28] MEDS: NEURONTIN PO SCH ×3 (09:30→21:37)
[2018-06-28] MEDS: FOLIC ACID 5 MG in NS 50 ML IV SCH (10:22)
[2018-06-28] MEDS ORDERED: M.V.I.-12 10 ML, FOLIC ACID 1 MG, MAGNESIUM SULFATE 1 GM, THIAMINE 100 MG in NS 1,000 ML IV ONE (10:30)
[2018-06-28] MEDS: SODIUM CHLORIDE 0.9% INJ SCH ×2 (15:11→17:21)
[2018-06-28] MEDS ORDERED: OFIRMEV 1000 MG/ISOTONIC SOLN 1,000 MG/100 ML BOTTLE IV PRN (16:18)
[2018-06-28] MEDS: PROTONIX IV SCH (17:21)
[2018-06-28] MEDS: LOVENOX SUBQ SCH (17:21)
--- NOTE | 2018-06-28 19:42 | PROGRESS NOTE ---
DATE: 06/28/2018 SUBJECTIVE: Apparently patient is drinking alcohol. Complains of upper abdominal pain. He is in a lot of pain. Started drinking again. In the past, he had elevated LFTs. Withdrawal seizures from alcohol. EXAM: Vital Signs: Low-grade fever 99. Pulse is 80, blood pressure is 141/73. HEENT: Within normal limits. Neck: Supple. No lymphadenopathy. Chest: Clear to auscultation. Heart: Sounds are regular. Abdomen: Belly is soft. Tender in the upper abdominal area. No signs of peritonitis. INVESTIGATIONS: CBC: White cell count 3.7, hematocrit 31.9, platelets 115. SMA-7: Sodium 136, potassium 3.3, BUN 4, creatinine 0.8, glucose 340. A1c 10, calcium is low. LFTs were high. Amylase is normal. ASSESSMENT AND PLAN: 1. Upper abdominal pain due to alcohol hepatitis, gastritis. Normal amylase. Plan is a banana bag, one dose IV thiamine, IV folic acid. 2. Continue IV Protonix. 3. Hyperglycemic dehydration. Continue IV fluids and also started on insulin 70/30, 20 units subcutaneous b.i.d., along with a sliding scale insulin coverage. 4. Chronic pain in the feet due to neuropathy on Neurontin 600 t.i.d. 5. Dysautonomia, stable. We will closely monitor for withdrawal seizures. 6. If he has pain, we will use the Toradol as needed. LEVEL OF DOCUMENTATION: 25 minutes. cc: Marques Luu MD
[2018-06-29] MEDS: NS 1,000 ML IV SCH ×2 (06:46→18:47)
[2018-06-29] MEDS: HUMALOG SUBQ SCH ×4 (07:29→22:12)
[2018-06-29 07:58] LABS: BASO# 0.01 X1000 (0.0-0.2); BASO% 0.3 % (0.0-0.8); EOS# 0.19 X1000 (0.0-0.7); EOS% 5.6 % (0.0-10.0); HEMATOCRIT 30.9 % (42.0-52.0); HEMOGLOBIN 9.9 g/dL (14.0-18.0); LYMPH# 1.51 X1000 (1.2-3.4); LYMPH% 44.5 % (20.5-51.1); MCV 81.1 FL (81-99); MONO# 0.28 X1000 (0.11-0.59); MONO% 8.3 % (1.7-9.3); MPV 10.9 FL (7.4-10.4); NEUT% 41.3 % (42.2-75.2); PLT 109 X1000 (130-400); RBC 3.81 XMIL (4.7-6.1); RDW 15.4 % (11.5-14.5); WBC 3.39 X1000 (4.8-10.8)
[2018-06-29] MEDS: NEURONTIN PO SCH ×3 (08:09→20:12)
[2018-06-29 08:28] LABS: AGAP 10; ALB/GLOB RATIO 1.3; ALBUMIN 2.9 g/dL (3.5-5.0); ALKALINE PHOSPHATASE 214 U/L (32-122); BUN 4 mg/dL (8-22); CALCIUM 7.1 mg/dL (8.8-10.2); CHLORIDE 102 mmol/L (98-107); COSMO 279; CREATININE 0.6 mg/dL (0.7-1.2); ESTIMATED GFR > 60; GLUCOSE 215 mg/dL (70-104); GOT 24 U/L (10-34); GPT 48 U/L (10-44); POTASSIUM 3.5 mmol/L (3.5-5.1); SODIUM 138 mmol/L (136-145); TCO2 26 mmol/L (25-35); TOTAL BILIRUBIN 1.64 mg/dL (0.20-1.00); TOTAL PROTEIN 5.1 g/dL (6.3-8.3)
[2018-06-29 08:29] LABS: AGAP 10; BUN 3 mg/dL (8-22); CALCIUM 7.1 mg/dL (8.8-10.2); CHLORIDE 102 mmol/L (98-107); COSMO 279; CREATININE 0.6 mg/dL (0.7-1.2); ESTIMATED GFR > 60; GLUCOSE 215 mg/dL (70-104); POTASSIUM 3.4 mmol/L (3.5-5.1); SODIUM 138 mmol/L (136-145); TCO2 26 mmol/L (25-35)
[2018-06-29] MEDS: FOLIC ACID 5 MG in NS 50 ML IV SCH (10:36)
[2018-06-29] MEDS: SODIUM CHLORIDE 0.9% INJ SCH (18:40)
[2018-06-29] MEDS: PROTONIX IV SCH (18:40)
[2018-06-29] MEDS: LOVENOX SUBQ SCH (18:41)
--- NOTE | 2018-06-29 20:16 | PROGRESS NOTE ---
DATE: 06/29/2018 SUBJECTIVE: The patient is a little better. Decreased abdominal pain. OBJECTIVE: On examination, temperature is 98.2 degrees, pulse is 84, blood pressure 157/88. HEENT exam within normal limits. Neck is supple. Chest is clear. Heart sounds are regular. Belly is soft, nontender. LABORATORY DATA: CBC: White cell count 3.3, hematocrit 30, platelets 109,000. SMA 7: Sodium 138, potassium 3.4, chloride 102, glucose 119. LFTs are slowly coming down. ASSESSMENT AND PLAN: 1. Hyperglycemic dehydration, stable. Continue intravenous fluids. Slowly advance the diet. 2. Deep venous thrombosis prophylaxis with Lovenox. 3. History of alcoholic hepatitis. Continue intravenous folic acid, thiamine. Slowly again detoxify. Continue on insulin. 4. Hypokalemia. Replace the potassium. Will follow up. Level of documentation 25 minutes. cc: Marques Luu MD
[2018-06-29] MEDS: POTASSIUM CHLORIDE 20 MEQ/SWI 20 MEQ/100 ML IVPB IV SCH ×2 (20:19→22:13)
[2018-06-30] MEDS: NS 1,000 ML IV SCH ×2 (02:51→15:39)
[2018-06-30] MEDS: HUMALOG SUBQ SCH ×4 (06:21→21:51)
[2018-06-30 07:23] LABS: BASO# 0.01 X1000 (0.0-0.2); BASO% 0.3 % (0.0-0.8); EOS# 0.19 X1000 (0.0-0.7); EOS% 5.1 % (0.0-10.0); HEMATOCRIT 30.7 % (42.0-52.0); HEMOGLOBIN 9.7 g/dL (14.0-18.0); LYMPH# 1.55 X1000 (1.2-3.4); MCH 25.7 PG (27-31); MCHC 31.6 g/dL (33-37); MCV 81.2 FL (81-99); MONO# 0.38 X1000 (0.11-0.59); MONO% 10.3 % (1.7-9.3); MPV 10.4 FL (7.4-10.4); NEUT# 1.56 X1000 (1.4-6.5); NEUT% 42.3 % (42.2-75.2); PLT 113 X1000 (130-400); RBC 3.78 XMIL (4.7-6.1); RDW 15.5 % (11.5-14.5); WBC 3.69 X1000 (4.8-10.8)
[2018-06-30 07:38] LABS: AGAP 9; BUN 5 mg/dL (8-22); CHLORIDE 103 mmol/L (98-107); COSMO 285; CREATININE 0.6 mg/dL (0.7-1.2); ESTIMATED GFR > 60; GLUCOSE 355 mg/dL (70-104); POTASSIUM 4.4 mmol/L (3.5-5.1); SODIUM 137 mmol/L (136-145); TCO2 25 mmol/L (25-35)
[2018-06-30] MEDS: NEURONTIN PO SCH ×3 (08:18→21:51)
[2018-06-30] MEDS: FOLIC ACID 5 MG in NS 50 ML IV SCH (09:55)
[2018-06-30] MEDS: SODIUM CHLORIDE 0.9% INJ SCH (18:25)
[2018-06-30] MEDS: LOVENOX SUBQ SCH (18:25)
[2018-06-30] MEDS: PROTONIX IV SCH (18:25)
--- NOTE | 2018-06-30 20:15 | PROGRESS NOTE ---
DATE: 06/30/2018 SUBJECTIVE: Patient is doing much better and decreased abdominal pain. Tolerating the diet very well. REVIEW OF SYSTEMS: None reported. PHYSICAL EXAMINATION: Temperature is 98 degrees, pulse is 78, blood pressure is 160 x 86.HEENT: Within normal limits. Neck: Supple. No lymphadenopathy. Chest: Bilateral air entry. Heart: Sounds are regular. Abdomen: Belly is soft, nontender. INVESTIGATIONS: CBC: White cell count 3.6, hematocrit 30, platelets 113,000. SMA-7: Sodium 137, potassium 4.4, blood sugars 197. ASSESSMENT AND PLAN: 1. Hyperglycemic dehydration, improving. 2. Deep vein thrombosis prophylaxis with Lovenox. 3. Chronic pain on Neurontin 600 t.i.d., nonnarcotic pain medications. 4. History of alcohol abuse with elevated liver function tests. Repeat CMP in the morning and slowly advance his home medications. Decrease IV fluids. Patient is advised not to drink anymore alcohol and will repeat the labs in the morning. LEVEL OF DOCUMENTATION: 25 minutes. cc: Marques Luu MD
[2018-07-01] MEDS: HUMALOG SUBQ SCH ×2 (06:52→11:22)
[2018-07-01 07:31] LABS: AGAP 10; ALB/GLOB RATIO 1.2; ALBUMIN 2.9 g/dL (3.5-5.0); ALKALINE PHOSPHATASE 190 U/L (32-122); BUN 5 mg/dL (8-22); CALCIUM 8.3 mg/dL (8.8-10.2); CHLORIDE 101 mmol/L (98-107); COSMO 286; CREATININE 0.7 mg/dL (0.7-1.2); ESTIMATED GFR > 60; GLUCOSE 374 mg/dL (70-104); GOT 20 U/L (10-34); GPT 30 U/L (10-44); POTASSIUM 4.2 mmol/L (3.5-5.1); SODIUM 137 mmol/L (136-145); TCO2 26 mmol/L (25-35); TOTAL BILIRUBIN 0.75 mg/dL (0.20-1.00); TOTAL PROTEIN 5.3 g/dL (6.3-8.3)
[2018-07-01] MEDS: NEURONTIN PO SCH (08:43)
[2018-07-01 11:49] VITALS: BP 146/85
--- NOTE | 2018-07-02 14:52 | DISCHARGE SUMMARY ---
ADMISSION DATE: 06/27/2018 DISCHARGE DATE: 07/01/2018 DISCHARGING DIAGNOSES: 1. Hyperglycemia Dehydration. SECONDARY DIAGNOSES: 1. Abdominal pain due to alcoholic hepatitis. 2. Uncontrolled diabetes due to noncompliance. 3. Diabetic peripheral neuropathy in both feet. 4. Withdrawal seizures from the alcohol. 5. History of orthostatic hypotension, resolved. 6. Osteoarthritis with bilateral hip replacements. BRIEF HISTORY: Please see the H and P that was done on 06/27/2018. In brief, he is a 58-year-old white male who recently had left hip surgery by Dr. Naranjo. Sent home and started having drinking with upper abdominal pain, nausea, vomiting, and retching. Patient had elevated liver function tests, and blood sugars were 600. He did not have any DKA by blood workup. HOSPITAL COURSE: He was given IV fluids, thiamine, folic acid, and banana bag. He was advised not to drink any alcohol. Follow up on amylase, and liver function tests came back normal. Patient started eating well. He was also given IV Protonix. Rest of the hospital course was uneventful. LABORATORY DATA: Labs at the time of discharge as follows. CBC: White cell count 3.6, hematocrit 30, platelets 113,000. SMA-7: Sodium 137, potassium 4.2 chloride 101, BUN 5, creatinine 0.7, glucose 300. LFTs were down. Amylase was normal. Acetone levels were normal. Urinalysis is clear. DISCHARGE MEDICATIONS: Gabapentin 600 t.i.d. NovoLog 70/30 30 units subcutaneous b.i.d. Zofran as needed for nausea. Protonix 40 daily. DISCHARGE INSTRUCTIONS: Follow up in my office for follow-up on the lipid profile and urine for protein for maintenance care for diabetes. cc: Marques Luu MD MTDHina
== END 2018-07-01 13:11 | disposition home or self-care (01) | DRG 638 ==
LOC: SUPCPDRO → ED 07:41 → 3N 14:41
PROVIDERS: ADMIT Internal Medicine; ATTEND Internal Medicine
CPT/HCPCS: 71010; 71045; 80048; 80053; 81001; 82009; 82150; 82805; 82948; 83036; 84484; 85025; 93005; 96360; 96361; 99285; A9270; C9113; J1650; J1815; J2405; J3411; J3475; J3480; J7030; S0164; XXXXX